=== PATIENT | male | born 1950 | race Caucasian/White ===

== ENCOUNTER 2017-07-05 15:27 | Outpatient (CLI) | payer MEDICARE, BC ==
[2017-07-05 16:53] LABS: #Eosinphils 0.3 thou/uL (0.0-0.7); #Lymphocytes 1.9 thou/uL (1.20-3.40); #Monocytes 0.8 thou/uL (0.11-0.59); #Neutrophils 4.7 thou/uL (1.40-6.50); %Basophils 0.3 % (0.0-1.0); %Eosinophils 4.4 % (0.0-10.0); %Lymphocytes 24.8 % (21.0-51.0); %Monocytes 9.7 % (0.0-10.0); %Neutrophils 60.8 % (42.0-75.0); Hemoglobin 13.3 g/dL (14.0-18.0); Mean Corpuscular Hemoglobin 31.9 pg (27.0-31.0); Mean Corpuscular Volume 91.1 fl (80.0-94.0); Mean Platelet Volume 5.5 fL (7.4-10.4); Platelet Count 182 thou/uL (130-400); RBC Distribution Width 13.8 % (11.5-14.5); Red Blood Cell (RBC) Count 4.18 mill/uL (4.70-6.10); White Blood Cell (WBC) Count 7.8 thou/uL (4.8-10.8)
[2017-07-05 17:19] LABS: Anion Gap 14 mmol/L (10-20); BUN (Urea Nitrogen) 11 mg/dL (8.4-25.7); Calc. Creatinine Clearance 0 mL/min (70-130); Calcium 9.5 mg/dL (7.8-10.44); Carbon Dioxide 24 mmol/L (23-31); Chloride 99 mmol/L (98-107); Estimated GFR-MDRD Greater than 90; Glucose 86 mg/dL (80-115); Potassium 4.4 mmol/L (3.5-5.1); Sodium 133 mmol/L (136-145)
--- NOTE | 2017-07-06 16:15 | EKG ---
Test Reason : Blood Pressure : / mmHG Vent. Rate : 068 BPM Atrial Rate : 068 BPM P-R Int : 150 ms QRS Dur : 096 ms QT Int : 398 ms P-R-T Axes : 014 028 036 degrees QTc Int : 423 ms Normal sinus rhythm Inferior infarct , age undetermined Cannot rule out Anterior infarct , age undetermined Abnormal ECG Confirmed by EDENILSON BILLS ([id number]) on 07/06/2017 4:15:11 PM Referred By: HYACINTH Confirmed By:EDENILSON BILLS
== END 2017-07-05 15:28 | disposition home or self-care (01) ==
LOC: LABBT 15:27
PROVIDERS: ATTEND Thoracic Surgery (Cardiothoracic Vascular Surgery)
DX: Z01.818 Encounter for other preprocedural examination (principal); R94.31 Abnormal electrocardiogram [ECG] [EKG]
CPT/HCPCS: 80048; 85025; 86850; 86900; 86901; 93005; 93010

== ENCOUNTER 2017-07-05 15:30 | Inpatient (IN) | payer MEDICARE, BC ==
--- NOTE | 2017-07-04 19:55 | HP ---
DATE OF ADMISSION: 07/06/2017 HISTORY OF PRESENT ILLNESS: This is a 67-year-old gentleman being electively admitted for an endovas cular aneurysm repair. The patient was diagnosed with an abdominal aortic aneurysm at 5.3 cm followi ng an episode of abdominal discomfort. He has a history of smoking and hypertension. CT angiogram w as done and discussion was held with the patient regarding endovascular aneurysm repair versus open r epair. Initial suggestion was for open repair due to a short neck. However, the patient, although i nitially in favor of open repair has changed his mind and wishes to undergo endovascular aneurysm rep air and we have discussed the possible downsides of this over time with possible need for further int ervention. He insists on minimally invasive repair at this time. PAST MEDICAL HISTORY: Includes hypertension, diverticulosis, gastroesophageal reflux disease, lower extremity disease and arthritis of the shoulders. Chronic pain syndrome followed by Dr. Armstrong and Dr. Cee. SOCIAL HISTORY: The patient does smoke on a daily basis and it has been strongly suggested that he s top smoking. He has taken Wellbutrin in the recent past and Chantix has also been prescribed for him . He drinks only socially. His occupation the patient retired from [employer] for many years. He is mar ried and spends most of his time in the house, although does work around the yard occasionally. MEDICATIONS: Include Maxzide one a day, amlodipine 2.5 a day, fentanyl 100 mcg patch every for 48 ho urs once a month, levothyroxine 50 mcg daily as well as levothyroxine 200 mcg daily, zonisamide 50 mg b.i.d., bupropion 150 mg b.i.d., and aspirin 81 a day. ALLERGIES: None known. PHYSICAL EXAMINATION: VITAL SIGNS: Height 5' 10", weight 220, blood pressure 160/80, heart rate 75. NECK: Supple. No carotid bruits, no cervical adenopathy. CARDIAC: Regular rate and rhythm. No murmurs. LUNGS: Clear to auscultation. ABDOMEN: Obese with a low transverse abdominal incision. EXTREMITIES: He has brown pigmentation in both ankles with palpable femoral and posterior tibial pul ses. NEUROLOGIC: Grossly intact. ASSESSMENT: Abdominal aortic aneurysm. The patient wishes repair and plan on endovascular aneurysm repair. Informed consent has been obtained.
[2017-07-06] MEDS ORDERED: CEFAZOLIN/Water 2 GM/20 ML SYRINGE ONE (06:48)
[2017-07-06] MEDS ORDERED: Heparin 10,000 UNITS/1 ML VIAL ONE (06:55)
[2017-07-06] MEDS ORDERED: Protamine Sulfate 50 MG/5 ML VIAL ONE (06:55)
[2017-07-06] MEDS ORDERED: Fentanyl 100 MCG/2 ML VIAL ONE (07:20)
[2017-07-06] MEDS ORDERED: Midazolam HCl 2 mg/2 ml Vial ONE (07:20)
[2017-07-06] MEDS ORDERED: Fentanyl 100 MCG/2 ML VIAL SLOW IVP PRN (09:47)
[2017-07-06] MEDS ORDERED: Ondansetron HCl/PF 4 MG/2 ML Vial IVP PRN (09:47)
[2017-07-06] MEDS ORDERED: Acetaminophen 325 MG TAB PO PRN (09:47)
[2017-07-06] MEDS ORDERED: HYDROcodone/Acetaminophen 5/325 mg Tablet PO PRN (09:47)
[2017-07-06] MEDS ORDERED: Promethazine HCl 25 MG/ML VIAL IM PRN (09:47)
[2017-07-06] MEDS ORDERED: Phenylephrine 10 MG/NS 250 ML 250 ML IVPB PRN (09:47)
[2017-07-06] MEDS ORDERED: fentaNYL 100 mcg/hour Patch TD SCH (09:47)
[2017-07-06] MEDS ORDERED: hydrALAZINE 20 MG/ML VIAL SLOW IVP PRN (09:47)
[2017-07-06] MEDS: Sodium Chloride 0.9% 1,000 ML IV SCH ×2 (10:00→22:02)
[2017-07-06] MEDS: Fentanyl 100 MCG/2 ML VIAL SLOW IVP PRN ×2 (10:23→16:55)
--- NOTE | 2017-07-06 10:51 | OP ---
DATE OF PROCEDURE: 07/06/2017 PREOPERATIVE DIAGNOSIS: Abdominal aortic aneurysm. PROCEDURE: Endovascular aneurysm repair with a 2 piece main body Medtronic Endurant II system, left 28 x 13 x 166 and right 16 x 16 x 156. SURGEON: Dr. Harsh Culver FINANCIAL REPORTING ACCOUNTANT: Dr. Adam Soto ESTIMATED BLOOD LOSS: 100. FLUOROSCOPY: 14 minutes 53 seconds. CONTRAST: 70 mL. PROCEDURE IN DETAIL: After prepping and draping, ultrasound guided puncture of both common femoral a rteries was performed and a Perclose device x2 were deployed on each side. 14-Colombian sheaths were pl aced following which the pigtail was advanced over the wire on the left. A 12-Colombian sheath was plac ed on the right. Contrast angiography performed. The main body was then deployed up the left side a nd deployed just below the left renal orifice. Following this, the gate was cannulated on the right and the right limb deployed. Following this, balloons were used to inflate the grafts in limbs. Con trast angiography at the conclusion demonstrated very late type 2 endoleak, but otherwise showed good position with the right limb at the hypogastric takeoff and the left limb above the hypogastric abou t a 1.5 cm. There was good coverage in both iliacs. Stent was deployed just below the left renal or ifice. Following this, Perclose devices were deployed on the right with good hemostasis and on the l eft an additional Perclose device was placed and then with good hemostasis. Heparin, which had been given was partially reversed with protamine.
[2017-07-06 11:03] VITALS: BMI 31.6
[2017-07-06] MEDS: Amlodipine 5 MG TAB PO SCH (11:44)
[2017-07-06 11:45] VITALS: BP 161/65
[2017-07-06] MEDS ORDERED: Succinylcholine Chloride 20 MG/ML 10 ml SYRINGE FS ONE (12:02)
[2017-07-06] MEDS ORDERED: Dexamethasone 20 MG/5 ML VIAL ONE (12:02)
[2017-07-06] MEDS ORDERED: Heparin 10,000 UNITS/ 10 ML VIAL ONE (12:02)
[2017-07-06] MEDS ORDERED: Esmolol 100 MG/10 ML VIAL ONE (12:02)
[2017-07-06] MEDS ORDERED: PROPOFOL 200 MG/20 ML VIAL ONE (12:02)
--- NOTE | 2017-07-06 13:07 | CON ---
DATE OF CONSULTATION: 07/06/2017 Mr. Clemens is a 67-year-old male who I know quite well. I have taken care of his with multiple complex medical problems for several years. Mr. Clemens was recently diagnosed with an abdominal aortic aneurysm. He had been having some sweating with some abdominal discomfort. He had an ultrasound that identified the problem. He has undergone an endovascular aneurysm repair. I have examined him in the Critical Care Unit after his surgery. PAST MEDICAL HISTORY: 1. Hypertension. 2. Diverticulosis. 3. Reflux disease. 4. History of arthritis. 5. History of chronic pain. SOCIAL HISTORY: He is a daily smoker. He drinks occasionally. He worked for [employer] for many years. FAMILY HISTORY: Negative for lung disease at an early age. REVIEW OF SYSTEMS: 10 point system review otherwise negative. His only complaint is his shoulder. He is actually tentatively on the schedule for a rotator cuff repair this week. MEDICATIONS: Prior to admission, he was on Maxzide fentanyl, Synthroid, zonisamide, Wellbutrin and aspirin. ALLERGIES: He has no reported drug allergies. PHYSICAL EXAMINATION: He has an arterial line in place. VITAL SIGNS: Blood pressure is 170s this morning. Heart rate is in the 80s, respiratory rate is 18. GENERAL: He is in no distress. HEENT: Pupils are equal. Sclerae is anicteric. NECK: Supple. LUNGS: Clear. HEART: Regular rhythm, no S3. ABDOMEN: Soft and nontender. EXTREMITIES: With asymmetry. His feet are warm. NEUROLOGIC: Nonfocal. There is no lab. IMPRESSION: 1. Status post endovascular aneurysm repair. 2. Rotator cuff tear tentatively on the schedule for surgical repair of this. 3. Hypertension, not entirely controlled yet. I have added Norvasc this morning. We will start him on a Cardene drip until the Norvasc kicks in. This is a 70 minute consult, greater than 50% of the time was spent coordinating care. HECTOR
[2017-07-06] MEDS: CEFAZOLIN/Water 2 GM/20 ML SYRINGE SLOW IVP SCH ×2 (14:22→22:03)
[2017-07-06] MEDS: HYDROcodone/Acetaminophen 5/325 mg Tablet PO PRN ×2 (17:57→23:27)
[2017-07-07] MEDS: Fentanyl 100 MCG/2 ML VIAL SLOW IVP PRN ×2 (00:15→05:54)
[2017-07-07] MEDS: CEFAZOLIN/Water 2 GM/20 ML SYRINGE SLOW IVP SCH (05:55)
[2017-07-07] MEDS ORDERED: Levothyroxine Sodium 100 MCG TAB PO SCH (06:00)
[2017-07-07] MEDS: Sodium Chloride 0.9% 1,000 ML IV SCH ×2 (06:11→06:46)
[2017-07-07 06:26] LABS: #Lymphocytes 1.3 thou/uL (1.20-3.40); #Monocytes 0.8 thou/uL (0.11-0.59); #Neutrophils 11.4 thou/uL (1.40-6.50); %Basophils 0.1 % (0.0-1.0); %Eosinophils 0.1 % (0.0-10.0); %Lymphocytes 9.5 % (21.0-51.0); %Monocytes 5.6 % (0.0-10.0); %Neutrophils 84.7 % (42.0-75.0); Hemoglobin 11.5 g/dL (14.0-18.0); Mean Corpuscular HGB CONC 34.5 g/dL (32.0-36.0); Mean Corpuscular Hemoglobin 31.2 pg (27.0-31.0); Mean Corpuscular Volume 90.6 fl (80.0-94.0); Mean Platelet Volume 5.7 fL (7.4-10.4); Platelet Count 177 thou/uL (130-400); Red Blood Cell (RBC) Count 3.68 mill/uL (4.70-6.10); White Blood Cell (WBC) Count 13.4 thou/uL (4.8-10.8)
[2017-07-07] MEDS ORDERED: Fentanyl 100 MCG/2 ML VIAL ONE (06:28)
[2017-07-07] MEDS ORDERED: Midazolam HCl 2 mg/2 ml Vial ONE (06:28)
[2017-07-07] MEDS ORDERED: Lidocaine 2% Jelly 5 ML TUBE ONE (06:29)
[2017-07-07] MEDS ORDERED: Phenylephrine HCL 10 MG/ML VIAL ONE (06:30)
[2017-07-07 06:52] LABS: Anion Gap 11 mmol/L (10-20); BUN (Urea Nitrogen) 9 mg/dL (8.4-25.7); Calc. Creatinine Clearance 145 mL/min (70-130); Calcium 9.4 mg/dL (7.8-10.44); Carbon Dioxide 22 mmol/L (23-31); Chloride 106 mmol/L (98-107); Estimated GFR-MDRD Greater than 90; Glucose 124 mg/dL (80-115); Potassium 4.1 mmol/L (3.5-5.1); Sodium 135 mmol/L (136-145)
[2017-07-07] MEDS: Amlodipine 5 MG TAB PO SCH (07:44)
[2017-07-07 08:47] VITALS: TEMP 98.3
[2017-07-07] MEDS ORDERED: Triamterene/Hydrochlorothiazide 37.5 mg/25 mg Tablet PO SCH (09:00)
[2017-07-07] MEDS ORDERED: Amlodipine 10 MG TAB PO SCH (09:00)
--- NOTE | 2017-07-07 09:05 | PRG ---
DATE OF SERVICE: 07/07/2017 Mr. Clemens is still on Cardene drip. Blood pressure is in the 140s. He is in no distress. PHYSICAL EXAMINATION: LUNGS: His lungs are clear. HEART: Regular rhythm. ABDOMEN: Abdomen is soft. EXTREMITIES: Extremities without clubbing, cyanosis, or edema. His feet are warm. LABORATORY: White count 13.4, hemoglobin 11.5, platelets 177. Sodium 135, potassium 4.1, chloride 106, bicarb 22, BUN 9, creatinine 0.7. IMPRESSION: Hypertension. Increased his Cardene dose, restarted his Dyazide. Hopefully, can wean o ff Cardene today and go home later today. He appears to be clinically stable.
--- NOTE | 2017-07-07 11:49 | DIS ---
This is a gentleman who underwent endovascular aneurysm repair on the morning of admission. His post operative course was uneventful with good urine output and normal renal function the day following mcelroy rgery. He had good diuresis with IV fluids through the night. He had been planned to have shoulder surgery on the day following his endovascular aneurysm repair; however, the orthopedic surgeon after consideration of the situation recommended that he come back for the surgery rather than have it done this admission. The patient will be discharged home on his admitting medications and no prescriptio ns have been written.
== END 2017-07-07 09:52 | disposition home or self-care (01) | DRG 269 ==
LOC: SURG A 07-06 05:41 → CCU 07-06 09:39
PROVIDERS: ADMIT Thoracic Surgery (Cardiothoracic Vascular Surgery); ATTEND Thoracic Surgery (Cardiothoracic Vascular Surgery)
PROC: 04V03DZ Restriction of Abdominal Aorta with Intraluminal Device, Percutaneous Approach (ICD-10-PCS; principal; 2017-07-06)
DX: I71.4 Abdominal aortic aneurysm, without rupture (principal); F17.210 Nicotine dependence, cigarettes, uncomplicated; G89.4 Chronic pain syndrome; I10 Essential (primary) hypertension; K21.9 Gastro-esophageal reflux disease without esophagitis; M19.012 Primary osteoarthritis, left shoulder; M19.011 Primary osteoarthritis, right shoulder; M75.100 Unspecified rotator cuff tear or rupture of unspecified shoulder, not specified as traumatic
CPT/HCPCS: 36416; 76001; 80048; 85025; 86850; 86900; 86901; 93005; 93010; C1726; C1760; C1769; C1894; J0360; J1100; J1642; J1644; J2250; J2370; J2704; J2720; J3010; J7050

== ENCOUNTER 2017-07-14 14:16 | Outpatient (CLI) | payer MEDICARE, BC ==
[2017-07-14 15:35] LABS: #Eosinphils 0.3 thou/uL (0.0-0.7); #Lymphocytes 1.5 thou/uL (1.20-3.40); #Monocytes 0.8 thou/uL (0.11-0.59); #Neutrophils 4.3 thou/uL (1.40-6.50); %Basophils 0.6 % (0.0-1.0); %Eosinophils 4.7 % (0.0-10.0); %Lymphocytes 21.4 % (21.0-51.0); %Neutrophils 61.3 % (42.0-75.0); Mean Corpuscular HGB CONC 34.5 g/dL (32.0-36.0); Mean Corpuscular Hemoglobin 31.9 pg (27.0-31.0); Mean Corpuscular Volume 92.4 fl (80.0-94.0); Mean Platelet Volume 6.1 fL (7.4-10.4); Platelet Count 193 thou/uL (130-400); RBC Distribution Width 14.1 % (11.5-14.5); Red Blood Cell (RBC) Count 3.77 mill/uL (4.70-6.10)
[2017-07-14 15:56] LABS: Anion Gap 12 mmol/L (10-20); BUN (Urea Nitrogen) 11 mg/dL (8.4-25.7); Calc. Creatinine Clearance 0 mL/min (70-130); Calcium 9.4 mg/dL (7.8-10.44); Carbon Dioxide 26 mmol/L (23-31); Chloride 99 mmol/L (98-107); Estimated GFR-MDRD Greater than 90; Glucose 95 mg/dL (80-115); Potassium 3.6 mmol/L (3.5-5.1); Sodium 133 mmol/L (136-145)
== END 2017-07-14 14:17 | disposition home or self-care (01) ==
LOC: LABBT 14:16
PROVIDERS: ATTEND Orthopaedic Surgery
DX: Z01.818 Encounter for other preprocedural examination (principal); M75.101 Unspecified rotator cuff tear or rupture of right shoulder, not specified as traumatic; M75.21 Bicipital tendinitis, right shoulder
CPT/HCPCS: 80048; 85025

== ENCOUNTER 2017-07-15 07:37 | Day surgery (SDC) | payer MEDICARE, BC ==
[2017-07-14 14:55] VITALS: BMI 32.3
[2017-07-15] MEDS ORDERED: CEFAZOLIN/Water 2 GM/20 ML SYRINGE ONE (09:14)
[2017-07-15] MEDS ORDERED: Midazolam HCl 2 mg/2 ml Vial ONE (09:46)
[2017-07-15] MEDS ORDERED: Fentanyl 100 MCG/2 ML VIAL ONE ×3 (09:46→13:22)
[2017-07-15] MEDS ORDERED: Promethazine HCl 25 MG/ML VIAL IM PRN (10:15)
[2017-07-15] MEDS ORDERED: HYDROcodone/Acetaminophen 10/325 mg Tablet PO PRN ×2 (10:15)
[2017-07-15] MEDS ORDERED: traMADol HCl 50 MG TAB PO PRN ×2 (10:15)
[2017-07-15] MEDS ORDERED: Zolpidem Tartrate 5 MG TAB PO PRN (10:15)
[2017-07-15] MEDS ORDERED: Ropivacaine 0.2% 550 ML 550 ML NERVE BLCK SCH (10:15)
[2017-07-15] MEDS ORDERED: Ondansetron HCl/PF 4 MG/2 ML Vial IVP PRN (10:15)
[2017-07-15] MEDS ORDERED: Fentanyl 100 MCG/2 ML VIAL IV SCH (10:30)
[2017-07-15] MEDS ORDERED: Lidocaine 2% Jelly 5 ML TUBE ONE (11:18)
--- NOTE | 2017-07-15 13:16 | OP ---
DATE OF PROCEDURE: 07/15/2017 PREOPERATIVE DIAGNOSES: Partial rotator cuff tear, biceps tendonitis, impingement syndrome, right halima burroughs. POSTOPERATIVE DIAGNOSES: Partial rotator cuff tear, biceps tendonitis, impingement syndrome, right gloria vaughan. SURGEON: Atif Boo M.D. VERTICAL MILL OPERATOR: Tino Mancuso PA-C. BLOOD LOSS: Minimal. SPECIMEN: None. DRAINS: None. COMPLICATIONS: None. TITLE OF PROCEDURE: Arthroscopic subacromial decompression, arthroscopic biceps tenodesis and debrid ement of rotator cuff tear and labrum. PROCEDURE IN DETAIL: The patient was placed in left lateral decubitus position. Right arm was place d in 15 pounds of traction, prepped and draped in the usual sterile fashion. Scope was placed in the glenohumeral joint. There was no significant arthritis. There was quite a bit of fraying and infla mmation of the biceps tendon. This was tagged and detached off the labrum. Labrum was torn. I debr ided the labrum with a shaver circumferentially. There did appear to be a partial thickness rotator cuff tear, but did not appear to be full-thickness from the joint surface. I placed the scope in mcelroy bacromial bursa, performed extensive debridement, removed the CA ligament, did an anterior and inferi or acromioplasty using arthroscopic acromionizer bur to remove bursal tissue over the biceps tendon. I delivered the biceps tendon laterally. I amputated about half an inch of the biceps tendon, place d about 25 mm of [place] suture in the tendon. It was measured and found to be a size 7. I drilled a size 7-hole in the proximal humerus, delivered the tendon to the hole and placed an Arthrex 7 mm Bio -Tenodesis screw. I tied sutures over the top of the tendon. The rotator cuff tear was probed from the bursal side. I could find no evidence of full-thickness rotator cuff tear from the bursal side. Therefore, no rotator cuff repair was performed. I felt that the debridement of the tear from the u ndersurface and acromioplasty should allow for healing of the tendon. There were no complications.
[2017-07-15] MEDS ORDERED: Meperidine HCl/PF 25 MG/ML VIAL ONE (13:20)
[2017-07-15] MEDS ORDERED: Ropivacaine 0.5% HCl/PF (150 MG/30 ML VIAL) ONE (19:27)
[2017-07-15] MEDS ORDERED: Ropivacaine 0.2% HCl/PF (40 MG/20 ML VIAL) ONE (19:27)
[2017-07-15] MEDS ORDERED: Dexamethasone 20 MG/5 ML VIAL ONE (19:38)
[2017-07-15] MEDS ORDERED: PROPOFOL 200 MG/20 ML VIAL ONE (19:38)
== END 2017-07-15 14:50 | disposition home or self-care (01) ==
LOC: SDC 07:37
PROVIDERS: ATTEND Orthopaedic Surgery
PROC: 0LQ14ZZ Repair Right Shoulder Tendon, Percutaneous Endoscopic Approach (ICD-10-PCS; principal; 2017-07-15)
PROC: 0RHJ44Z Insertion of Internal Fixation Device into Right Shoulder Joint, Percutaneous Endoscopic Approach (ICD-10-PCS; 2017-07-15)
PROC: 0LS14ZZ Reposition Right Shoulder Tendon, Percutaneous Endoscopic Approach (ICD-10-PCS; 2017-07-15)
PROC: 0RNJ4ZZ Release Right Shoulder Joint, Percutaneous Endoscopic Approach (ICD-10-PCS; 2017-07-15)
DX: M75.111 Incomplete rotator cuff tear or rupture of right shoulder, not specified as traumatic (principal); M75.21 Bicipital tendinitis, right shoulder; M75.41 Impingement syndrome of right shoulder; I10 Essential (primary) hypertension; K21.9 Gastro-esophageal reflux disease without esophagitis; G89.4 Chronic pain syndrome; F17.210 Nicotine dependence, cigarettes, uncomplicated; M19.012 Primary osteoarthritis, left shoulder; M19.011 Primary osteoarthritis, right shoulder; Z79.82 Long term (current) use of aspirin; Z79.891 Long term (current) use of opiate analgesic; Z79.899 Other long term (current) drug therapy
CPT/HCPCS: 29826; 29827; 29828; 96374 ×2; 97139; A4306; C1713; G8984; G8985; G8986; J1100; J2175; J2250; J2704; J2795; J3010

== ENCOUNTER 2017-09-20 12:33 | Outpatient (CLI) | payer MEDICARE, BC ==
[~2017-09-20 12:33] MED LIST: Iopamidol 370 76% 100 ML VIAL ONE
[2017-09-20 13:10] LABS: Estimated GFR-MDRD - POC Greater than 90
== END 2017-09-20 12:34 | disposition home or self-care (01) ==
LOC: BICCT 12:33
PROVIDERS: ATTEND Thoracic Surgery (Cardiothoracic Vascular Surgery)
DX: I71.4 Abdominal aortic aneurysm, without rupture (principal); Z95.828 Presence of other vascular implants and grafts
CPT/HCPCS: 74174; 82565

== ENCOUNTER 2018-03-27 08:23 | Day surgery (SDC) | payer MEDICARE, BC ==
[2018-03-24 16:06] VITALS: BMI 26.5
[2018-03-27 08:51] LABS: #Eosinphils 0.1 thou/uL (0.0-0.7); #Lymphocytes 1.1 thou/uL (1.20-3.40); #Monocytes 0.6 thou/uL (0.11-0.59); #Neutrophils 7.6 thou/uL (1.40-6.50); %Basophils 0.2 % (0.0-1.0); %Eosinophils 1.1 % (0.0-10.0); %Lymphocytes 11.9 % (21.0-51.0); %Monocytes 6.5 % (0.0-10.0); %Neutrophils 80.4 % (42.0-75.0); Hemoglobin 11.7 g/dL (14.0-18.0); Mean Corpuscular Hemoglobin 26.2 pg (27.0-31.0); Mean Corpuscular Volume 84.5 fL (78.0-98.0); Mean Platelet Volume 6.5 fL (7.4-10.4); Platelet Count 292 thou/uL (130-400); RBC Distribution Width 14.3 % (11.5-14.5); Red Blood Cell (RBC) Count 4.47 mill/uL (4.70-6.10); White Blood Cell (WBC) Count 9.5 thou/uL (4.8-10.8)
[2018-03-27 09:13] LABS: INR-International Normal Ratio 1.1; Prothrombin Time 14.3 SEC (12.0-14.7)
[2018-03-27 09:14] LABS: PTT 41.4 SEC (22.9-36.1)
[2018-03-27 09:19] VITALS: BP 124/76; TEMP 97.5
--- NOTE | 2018-03-27 13:28 | CT ---
CT GUIDED LIVER MASS BIOSPY: CONSCIOUS SEDATION: 1 mg Versed IV. 50 mcg Fentanyl, IV. At least 35 minutes were spent with the patient for conscious sedation. HISTORY: New liver masses. FINDINGS: After explaining the procedure and answering all questions, limited CT imaging of the abdomen was per formed. Heterogeneous mass in the anterior segment right liver lobe was visualized. Sterile techniq ue, buffered local anesthesia, CT guidance, conscious sedation, and a right lateral approach were use d to carefully advance a 17-gauge trocar needle into the heterogeneous low-density liver mass. Posit ion was confirmed with CT. A total of three 18-gauge core biopsy specimens were obtained and eventua lly submitted to pathology for evaluation. The needle was removed. Postprocedure imaging shows no e vidence of complication. The patient tolerated the procedure well and was returned to the [facility] in good condition for further monitoring. IMPRESSION: Technically successful CT-guided liver mass biopsy. Pathology is pending. POS: MARYJANE
--- NOTE | 2018-03-28 14:53 | CT ---
CT GUIDED LIVER MASS BIOSPY: CONSCIOUS SEDATION: 1 mg Versed IV. 50 mcg Fentanyl, IV. At least 35 minutes were spent with the patient for conscious sedation. HISTORY: New liver masses. FINDINGS: After explaining the procedure and answering all questions, limited CT imaging of the abdomen was per formed. Heterogeneous mass in the anterior segment right liver lobe was visualized. Sterile techniq ue, buffered local anesthesia, CT guidance, conscious sedation, and a right lateral approach were use d to carefully advance a 17-gauge trocar needle into the heterogeneous low-density liver mass. Posit ion was confirmed with CT. A total of three 18-gauge core biopsy specimens were obtained and eventua lly submitted to pathology for evaluation. The needle was removed. Postprocedure imaging shows no e vidence of complication. The patient tolerated the procedure well and was returned to the [facility] in good condition for further monitoring. IMPRESSION: Technically successful CT-guided liver mass biopsy. Pathology is pending.
== END 2018-03-27 12:10 | disposition home or self-care (01) ==
LOC: CT 08:23
PROVIDERS: ATTEND Internal Medicine Gastroenterology
PROC: 0FB13ZX Excision of Right Lobe Liver, Percutaneous Approach, Diagnostic (ICD-10-PCS; principal; 2018-03-27)
DX: C22.9 Malignant neoplasm of liver, not specified as primary or secondary (principal); D50.9 Iron deficiency anemia, unspecified; K21.9 Gastro-esophageal reflux disease without esophagitis; Z86.010 Personal history of colon polyps; Z87.891 Personal history of nicotine dependence; Z80.0 Family history of malignant neoplasm of digestive organs; Z79.82 Long term (current) use of aspirin; Z79.899 Other long term (current) drug therapy; Z91.040 Latex allergy status; Z91.048 Other nonmedicinal substance allergy status
CPT/HCPCS: 36415; 47000; 77012; 85025; 85610; 85730; 88307; 88313; 88341; 88342; 88360

== ENCOUNTER 2018-03-31 09:50 | Outpatient (CLI) | payer MEDICARE, BC ==
[2018-03-31] MEDS ORDERED: Iopamidol 370 76% 100 ML VIAL ONE (10:06)
[2018-03-31 10:41] LABS: Estimated GFR-MDRD - POC Greater than 90
--- NOTE | 2018-03-31 12:46 | CT ---
CT CHEST WITH IV CONTRAST: HISTORY: Lung cancer with hepatic metastases. Initial staging. COMPARISON: CT abdomen from 03/16/2018. FINDINGS: A large, very heterogeneous, partially necrotic mass, centered at the right lateral chest wall, at th e level of the 2nd and 3rd ribs, destroys the involved ribs. It is 9.8 cm in length x 9.1 cm in dept h x 7.9 cm in width. There is a small amount of adjacent atelectasis. Centered within the periphery of the superior segment, left lower lobe, is an irregular-shaped soft t issue density mass, measuring up to 3.4 cm in length x 3.7 cm in width x 2.5 cm in depth. It approac hes the posterior pleura. Old healing left 8th rib fracture. Enlarged lymph nodes within the mediastinum include a right upper paratracheal 3.1 cm lymph node, rig ht mediastinal lymph nodes measuring up to 2.9 cm, and a subcarinal lymph node measuring up to 2.7 cm . Prominent emphysematous changes are apparent throughout the lungs. Prominent calcification in the ar terial structures. Liver metastases are partially visualized, correlating with those on recent CT ab domen. IMPRESSION: 1. Right upper lobe and left lower lobe lung masses, as detailed above. The right upper lobe mass i nvades the right upper lateral chest wall. 2. Mediastinal adenopathy. 3. Redemonstration of hepatic metastases. 4. Atherosclerosis. POS: MARYJANE
== END 2018-03-31 09:51 | disposition home or self-care (01) ==
LOC: CT 09:50
PROVIDERS: ATTEND Internal Medicine Hematology & Oncology
DX: C78.7 Secondary malignant neoplasm of liver and intrahepatic bile duct (principal); C34.90 Malignant neoplasm of unspecified part of unspecified bronchus or lung; J98.4 Other disorders of lung; I70.0 Atherosclerosis of aorta; R59.0 Localized enlarged lymph nodes
CPT/HCPCS: 71260; 82565

== ENCOUNTER 2018-04-05 16:01 | Outpatient (CLI) | payer MEDICARE, BC ==
[2018-04-05 17:23] LABS: #Eosinphils 0.1 thou/uL (0.0-0.7); #Lymphocytes 1.5 thou/uL (1.20-3.40); #Neutrophils 10.8 thou/uL (1.40-6.50); %Basophils 0.3 % (0.0-1.0); %Eosinophils 0.7 % (0.0-10.0); %Lymphocytes 11.1 % (21.0-51.0); %Monocytes 7.4 % (0.0-10.0); %Neutrophils 80.6 % (42.0-75.0); Hemoglobin 12.3 g/dL (14.0-18.0); Mean Corpuscular HGB CONC 31.3 g/dL (32.0-36.0); Mean Corpuscular Hemoglobin 26.9 pg (27.0-31.0); Platelet Count 286 thou/uL (130-400); RBC Distribution Width 15.2 % (11.5-14.5); Red Blood Cell (RBC) Count 4.56 mill/uL (4.70-6.10); White Blood Cell (WBC) Count 13.4 thou/uL (4.8-10.8)
[2018-04-05 17:44] LABS: ALT (SGPT) 9 U/L (8-55); AST (SGOT) 17 U/L (5-34); Albumin 3.8 g/dL (3.4-4.8); Alkaline Phosphatase 186 U/L (40-150); Anion Gap 15 mmol/L (10-20); BUN (Urea Nitrogen) 11 mg/dL (8.4-25.7); Bilirubin, Total 0.7 mg/dL (0.2-1.2); Calc. Creatinine Clearance 0 mL/min (70-130); Calcium 9.8 mg/dL (7.8-10.44); Carbon Dioxide 26 mmol/L (23-31); Chloride 94 mmol/L (98-107); Estimated GFR-MDRD Greater than 90; Globulin 4.1 g/dL (2.4-3.5); Glucose 101 mg/dL (80-115); Potassium 4.1 mmol/L (3.5-5.1); Protein, Total 7.9 g/dL (5.8-8.1); Sodium 131 mmol/L (136-145)
== END 2018-04-05 16:02 | disposition home or self-care (01) ==
LOC: LABBT 16:01
PROVIDERS: ATTEND Surgery
DX: Z01.818 Encounter for other preprocedural examination (principal); C34.90 Malignant neoplasm of unspecified part of unspecified bronchus or lung
CPT/HCPCS: 80053; 85025; 93005; 93010

== ENCOUNTER 2018-04-10 08:53 | Day surgery (SDC) | payer MEDICARE, BC ==
[2018-04-05 16:13] VITALS: BMI 25.1
[2018-04-10] MEDS ORDERED: Fentanyl 100 MCG/2 ML VIAL ONE ×2 (09:46→10:55)
[2018-04-10] MEDS ORDERED: CEFAZOLIN 2 GM/50 ML BAG ONE (10:11)
[2018-04-10] MEDS ORDERED: Bupivacaine HCl 0.25%/Epi 0.0005/PF 10 ML VIAL FS ONE (10:44)
[2018-04-10] MEDS ORDERED: Lidocaine 2% PF 5 ML VIAL ONE (10:44)
[2018-04-10] MEDS ORDERED: PROPOFOL 20 ML ONE (10:55)
[2018-04-10] MEDS ORDERED: Midazolam HCl 2 mg/2 ml Vial ONE (10:55)
[2018-04-10] MEDS ORDERED: Morphine 4 MG/ML VIAL ONE (12:11)
--- NOTE | 2018-04-10 12:13 | OP ---
DATE OF PROCEDURE: 04/10/2018 PREOPERATIVE DIAGNOSIS: Metastatic carcinoma. PROCEDURE PERFORMED: MediPort placement. INDICATIONS: A 67-year-old male with metastatic lung cancer, needs access for chemotherapy. FINDINGS: Left subclavian placement. DESCRIPTION OF PROCEDURE: After informed consent was obtained, the patient was taken to the operating room and given general mask anesthesia, placed in supine position. His chest and neck were prepped and draped in usual fashion. Local anesthesia infiltrated subcutaneously and deep, and introducer needle was inserted in left subclavian with good backflow of venous blood. The J-wire threaded easily. Fluoroscopy was used to show good placement of the wire in the superior vena cava. Skin and subcu anesthetized. A transverse chest wall incision was performed. Subcu divided sharply. A pocket was created utilizing electrocautery on the pectoralis fascia. The tunneling device used to connect the two incisions and the catheter brought through the tunnel. It was connected to the MediPort. The MediPort secured to the pectoralis fascia with interrupted 2-0 Prolene suture. The system was flushed with heparinized saline. The peel-away introducer inserted over the wire. The wire was removed. The catheter inserted through the peel-away introducer and the peel-away introducer removed. Another fluoroscopy was used to show good placement of the tip in the superior vena cava and smooth curves without kinking. The subcu was reapproximated with interrupted 3-0 Vicryl. The MediPort access had good backflow of venous blood, flushed with heparinized saline. The skin closed with a running subcuticular 4-0 Rapide. Dermabond applied. The patient tolerated the procedure well, transferred to Recovery in good condition. Sponge and needle count verified correct x2. Job ID: [id number]
[2018-04-10] MEDS ORDERED: Ondansetron PF 4 MG/2 ML Vial ONE (13:28)
[2018-04-10] MEDS ORDERED: Ketorolac Tromethamine 30 MG/ML VIAL ONE (13:28)
--- NOTE | 2018-04-10 14:47 | RAD ---
CHEST 1 VIEW: INDICATION: MediPort placement. COMPARISON: CT of the chest dated 03/31/2018. FINDINGS: There is a left subclavian chest wall MediPort in place. The tip of the catheter is seen within the region of the SVC. Large infiltrating right upper chest wall lung mass is stable. Chronic lung faria ge is similar. No pneumothorax is evident. IMPRESSION: 1. Interval MediPort placement without evidence of pneumothorax. 2. Right upper lobe and right upper chest wall mass. POS: [facility]
== END 2018-04-10 12:40 | disposition home or self-care (01) ==
LOC: SDC 08:53
PROVIDERS: ATTEND Surgery
PROC: 0JH63WZ Insertion of Totally Implantable Vascular Access Device into Chest Subcutaneous Tissue and Fascia, Percutaneous Approach (ICD-10-PCS; principal; 2018-04-10)
DX: C34.90 Malignant neoplasm of unspecified part of unspecified bronchus or lung (principal); C78.7 Secondary malignant neoplasm of liver and intrahepatic bile duct; K21.9 Gastro-esophageal reflux disease without esophagitis; E07.9 Disorder of thyroid, unspecified; Z87.891 Personal history of nicotine dependence; Z79.82 Long term (current) use of aspirin; Z79.899 Other long term (current) drug therapy; Z98.1 Arthrodesis status
CPT/HCPCS: 36561; 71045; C1788; J1642; J1885; J2001; J2250; J2270; J2405; J2704; J3010

== ENCOUNTER 2018-04-27 15:54 | Inpatient (IN) | payer MEDICARE, BC ==
[2018-04-27 16:28] VITALS: BMI 25.0
[2018-04-27] MEDS ORDERED: Ondansetron PF 4 MG/2 ML Vial SLOW IVP PRN (16:46)
[2018-04-27] MEDS: Sodium Chloride 0.9% 1,000 ML IV SCH (17:10)
[2018-04-27] MEDS ORDERED: oxyCODONE/Acetaminophen 5 mg/325 mg Tablet PO PRN (18:22)
[2018-04-27] MEDS: oxyCODONE/Acetaminophen 5 mg/325 mg Tablet PO PRN (18:36)
[2018-04-27] MEDS ORDERED: Acetaminophen 325 MG TAB PO PRN (19:38)
[2018-04-27] MEDS ORDERED: Guaifenesin DM 100-10/5 ML UDCUP PO PRN (20:06)
[2018-04-27] MEDS ORDERED: Acetaminophen 650 MG Suppository PR PRN (20:06)
[2018-04-27] MEDS ORDERED: Senokot S 8.6-50 MG TAB PO PRN (20:06)
[2018-04-27] MEDS ORDERED: Ondansetron ODT 4 MG TAB PO PRN (20:06)
[2018-04-27] MEDS: Bupropion 150 MG XL TAB PO SCH (20:55)
[2018-04-27] MEDS: Cefepime 2 GM in Sodium Chloride 0.9% 100 ML IVPB SCH (21:18)
--- NOTE | 2018-04-28 02:57 | HP ---
PRIMARY CARE PHYSICIAN: Corey Nava MD. CHIEF COMPLAINT: Neutropenia and thrombocytopenia from chemotherapy. HISTORY OF PRESENT ILLNESS: This is a 67-year-old white male, who was diagnosed with metastatic lung cancer in the last 3 weeks, being seen at the [facility] and started on chemotherapy 1st round a little over week ago, then starting 1 week prior, about a week ago and then starting on about 5 days ago, he started feeling very fatigued, loss of appetite, not taking much in the way of food or fluids and feeling nauseated and generalized weakness. The patient presented to the Cancer Center today and looked very fatigued and rundown, and then we toshia his CBC, his white cell count was 1000, and his platelet count was 14,000. He also had a low sodium and was being admitted for fluids and platelet transfusion in the hospital. After patient started getting his platelet transfusion, he did spike a fever to 101. He denied having fevers previous to this, possibly related to the transfusion reaction, though he is at high risk for having an infection as well. PAST MEDICAL HISTORY: 1. Hypotension. 2. Gastroesophageal reflux disease. 3. Arthritis. 4. Diverticulosis. 5. Peripheral vascular disease. 6. Aortic aneurysm status post repair. 7. Chronic pain syndrome. PAST SURGICAL HISTORY: 1. Appendectomy. 2. Aortic aneurysm repair. 3. Endovascular repair. 4. Right shoulder surgery. SOCIAL HISTORY: The patient used to be a heavy smoker, smoked a pack and a half a day for at least 30 years. He quit when he was diagnosed with cancer, only social alcohol use. No illicit drugs. He is and lives with his . FAMILY HISTORY: Lung cancer. ALLERGIES: NO KNOWN DRUG ALLERGIES. HE DOES HAVE AN ALLERGY TO ADHESIVE TAPE, THOUGH. CURRENT MEDICATIONS: 1. Prevacid 30 mg twice daily. 2. Bupropion 150 mg 2 times daily. 3. Levothyroxine 200 mcg daily. 4. Zonisamide 50 mg 2 times daily. 5. Aspirin 325 mg daily. 6. Triamterene/hydrochlorothiazide 37.5/25 mg daily. 7. Amlodipine 2.5 mg daily. 8. Atorvastatin 20 mg daily. 9. Percocet as needed for pain. REVIEW OF SYSTEMS: CONSTITUTIONAL: See HPI. EYES: No double vision or blurred vision. ENT: He had a little bit of stuffy nose and then had some bleeding from his nose on and off over the last couple of days. No significant epistaxis, though. No sore throat. CARDIOVASCULAR: No chest pain. No palpitations or racing heart. PULMONARY: No coughing, wheezing or shortness of breath. GASTROINTESTINAL: He had a little bit of loss of appetite and little bit of nausea. No vomiting. No constipation. He had some loose bowel movement twice today. GENITOURINARY: No dysuria or hematuria. MUSCULOSKELETAL: He has chronic muscle aches and joint pains, but nothing unusual. He does have some right shoulder and chest wall pain as well. This is chronic in nature. SKIN: The patient has bruising all over his right back and under his right arm. He states that this is chronic ever since his right shoulder surgery in the past. No changes to it recently. NEUROLOGIC: No numbness, tingling, or focal weakness, just generalized weakness. PHYSICAL EXAMINATION: VITAL SIGNS: Blood pressure 101/52, pulse 106, respirations 18, temperature 98.4 initially, then spiked to 101. GENERAL: This is a well-developed, well-nourished white male, who appears very fatigued, but otherwise in no acute distress. HEENT: Pupils equal, round, and reactive to light. Nares with some dried blood. Oropharynx clear without lesions, erythema, or exudate. NECK: Supple. No lymphadenopathy. No thyroid nodules or enlargement. No JVD. HEART: Regular rate and rhythm. No murmurs, rubs, or gallops. LUNGS: Clear to auscultation bilaterally. No wheezes, crackles, or rhonchi. ABDOMEN: Soft, nontender to palpation. Normoactive bowel sounds. No hepatosplenomegaly or other masses. EXTREMITIES: He has some 1+ edema to bilateral lower extremities. No cyanosis or clubbing. SKIN: The patient has diffuse bruising underneath his right armpit and on his right back. He states this is chronic. No other rashes noted. NEUROLOGIC: He has had intact strength and sensation in all extremities. No facial droop. PSYCHIATRIC: Alert, oriented x3. Normal mood and affect. LABORATORY DATA: Sodium of 123, potassium of 3.9, chloride 87, bicarb 22, creatinine was normal. Glucose normal. Total bilirubin is a little elevated at 1.5 and direct bilirubin is elevated at 0.8. AST and ALT are normal. Alkaline phosphatase elevated at 198 and lactate dehydrogenase was elevated at 283, normal albumin. CBC with a white blood cell count of 1000, 35% granulocytes, 55% lymphocytes, hemoglobin 9.6, hematocrit 30.8, MCV of 80, platelet count of 14,000. ASSESSMENT: 1. Neutropenia now with fever, possibly reaction to his platelet transfusion. However, the patient is at high risk for infection. We will draw blood cultures, urine culture, and then cover with cefepime. We will continue to monitor closely in the hospital. 2. Thrombocytopenia, currently receiving transfusion. 3. Anemia. We will monitor, not in a severe level now, no active bleeding. 4. Metastatic lung cancer. We will have Oncology continue to follow the patient in the hospital. 5. Hypertension. We will hold patient's blood pressure medicines for now due to his borderline low blood pressure and tachycardia. We can resume them, if his blood pressure starts to come up. 6. Gastrointestinal prophylaxis. We will resume patient's proton pump inhibitor. 7. Sepsis. We will continue IV fluids and antibiotics. 8. Code status. I did discuss this with the patient. He is a DO NOT ATTEMPT RESUSCITATION should he be incapacitated. He states that his would be his medical decision maker, her name is Camrynjanae Clemens. Job ID: [id number]
[2018-04-28] MEDS: Sodium Chloride 0.9% 1,000 ML IV SCH ×3 (03:20→15:42)
[2018-04-28] MEDS: Levothyroxine Sodium 100 MCG TAB PO SCH (05:37)
[2018-04-28 06:18] LABS: Bilirubin Negative (Negative); Blood, Urine Negative (Negative); Clarity CLEAR (Clear); Glucose, Urine (Dipstick) Negative (Negative); Leukocyte Negative (Negative); Nitrite Negative (Negative); Protein, Urine (Dipstick) Trace mg/dL (Neg-Trace); Specific Gravity, Urine 1.024 (1.002-1.036)
[2018-04-28 06:25] LABS: Hemoglobin 8.1 g/dL (14.0-18.0); Mean Corpuscular HGB CONC 32.2 g/dL (32.0-36.0); Mean Corpuscular Hemoglobin 26.7 pg (27.0-31.0); Mean Corpuscular Volume 83.1 fL (78.0-98.0); Mean Platelet Volume 11.4 fL (7.4-10.4); Platelet Count 20 thou/uL (130-400); RBC Distribution Width 15.4 % (11.5-14.5); Red Blood Cell (RBC) Count 3.02 mill/uL (4.70-6.10)
[2018-04-28 06:26] LABS: ALT (SGPT) 7 U/L (8-55); AST (SGOT) 14 U/L (5-34); Albumin 3.1 g/dL (3.4-4.8); Alkaline Phosphatase 162 U/L (40-150); Anion Gap 16 mmol/L (10-20); BUN (Urea Nitrogen) 12 mg/dL (8.4-25.7); Bilirubin, Total 1.1 mg/dL (0.2-1.2); Calc. Creatinine Clearance 107 mL/min (70-130); Calcium 8.7 mg/dL (7.8-10.44); Carbon Dioxide 22 mmol/L (23-31); Chloride 90 mmol/L (98-107); Estimated GFR-MDRD Greater than 90; Globulin 3.3 g/dL (2.4-3.5); Glucose 86 mg/dL (80-115); Potassium 3.6 mmol/L (3.5-5.1); Protein, Total 6.4 g/dL (5.8-8.1); Sodium 124 mmol/L (136-145)
[2018-04-28 06:53] LABS: #Lymphocytes 0.4 thou/uL (1.20-3.40); #Monocytes 0.1 thou/uL (0.11-0.59); #Neutrophils 0.5 thou/uL (1.40-6.50); %Eosinophils 1.9 % (0.0-10.0); %Lymphocytes 36.4 % (21.0-51.0); %Monocytes 13.8 % (0.0-10.0); Anisocytosis SLIGHT = 6-15 cells (100X) (0-5/hpf); MDiff Complete? YES; Platelet Morphology Comment Appears Decreased
[2018-04-28] MEDS ORDERED: Artificial Tears 18 DROP/0.9 ML EA EYE PRN (08:29)
[2018-04-28] MEDS ORDERED: Zolpidem Tartrate 5 MG TAB PO PRN (08:29)
[2018-04-28] MEDS ORDERED: Eucerin (Mineral Oil/Petrolatum,White) 30 gm Jar TOP PRN (08:29)
[2018-04-28] MEDS ORDERED: Sodium Chloride 0.65% Nasal 44 ML BOT EA NARE PRN (08:29)
[2018-04-28] MEDS ORDERED: Loratadine 10 MG TAB PO PRN (08:29)
[2018-04-28] MEDS ORDERED: Cepastat Lozenges 1 LOZ PO PRN (08:29)
[2018-04-28] MEDS ORDERED: hydrALAZINE 20 MG/ML VIAL SLOW IVP PRN (08:29)
[2018-04-28] MEDS ORDERED: Diabetic Tussin 200 MG/10 ML UDCUP PO PRN (08:29)
[2018-04-28] MEDS: oxyCODONE/Acetaminophen 5 mg/325 mg Tablet PO PRN ×3 (09:21→19:36)
[2018-04-28] MEDS: Cefepime 2 GM in Sodium Chloride 0.9% 100 ML IVPB SCH ×2 (09:22→21:23)
[2018-04-28] MEDS: Atorvastatin Calcium 20 MG TAB PO SCH (09:22)
[2018-04-28] MEDS: Bupropion 150 MG XL TAB PO SCH ×2 (09:22→19:35)
--- NOTE | 2018-04-28 12:07 | PDOC.PN ---
- Subjective Encounter Start Date: 04/28/18 Encounter Start Time: 07:00 -: old records requested/rev pt was given platelet last night, he had fever last night, overall he feels fine this morning, but feels weak, his DNR confirmed with him - Objective Resuscitation Status - Order Detail: 04/27/18 19:41 Resuscitation Status Routine Resuscitation Status: DNAR: NO Resuscitation Discussed with: Patient MAR Reviewed: Yes Vital Signs & Weight: Vital Signs (12 hours) Temp Pulse Resp BP Pulse Ox 04/28/18 09:00 98.0 F 92 20 103/58 L 95 04/28/18 08:00 95 04/28/18 05:45 98.2 F 99 20 105/56 L 93 L Weight Weight 174 lb 11.2 oz I&O: 04/27/18 04/28/18 04/29/18 06:59 06:59 06:59 Intake Total 500 Balance 500 Result Diagrams: 04/28/18 05:40 04/28/18 05:40 Phys Exam - Physical Examination Constitutional: NAD HEENT: PERRLA, moist MMs, sclera anicteric Neck: no JVD, supple Respiratory: no wheezing, no rales, no rhonchi mediport in place, air entry reduced on right side Cardiovascular: RRR, no significant murmur, no rub Gastrointestinal: soft, non-tender, no distention, positive bowel sounds Musculoskeletal: no edema, pulses present Neurological: non-focal, normal sensation, moves all 4 limbs Lymphatic: no nodes Psychiatric: normal affect, A&O x 3 Skin: no rash, normal turgor Dx/Plan (1) Hyponatremia Code(s): E87.1 - HYPO-OSMOLALITY AND HYPONATREMIA Status: Acute (2) Neutropenic fever Code(s): D70.9 - NEUTROPENIA, UNSPECIFIED; R50.81 - FEVER PRESENTING WITH CONDITIONS CLASSIFIED ELSEWHERE Status: Acute (3) Pancytopenia due to chemotherapy Code(s): D61.810 - ANTINEOPLASTIC CHEMOTHERAPY INDUCED PANCYTOPENIA Status: Acute (4) Thrombocytopenia Code(s): D69.6 - THROMBOCYTOPENIA, UNSPECIFIED Status: Acute (5) Anxiety and depression Code(s): F41.9 - ANXIETY DISORDER, UNSPECIFIED; F32.9 - MAJOR DEPRESSIVE DISORDER, SINGLE EPISODE, UNSPECIFIED Status: Chronic (6) Dyslipidemia Code(s): E78.5 - HYPERLIPIDEMIA, UNSPECIFIED Status: Chronic (7) GERD (gastroesophageal reflux disease) Code(s): K21.9 - GASTRO-ESOPHAGEAL REFLUX DISEASE WITHOUT ESOPHAGITIS Status: Chronic (8) Hypertension Code(s): I10 - ESSENTIAL (PRIMARY) HYPERTENSION Status: Chronic (9) Hypothyroidism Code(s): E03.9 - HYPOTHYROIDISM, UNSPECIFIED Status: Chronic (10) Metastatic primary lung cancer Code(s): C34.90 - MALIGNANT NEOPLASM OF UNSP PART OF UNSP BRONCHUS OR LUNG Status: Chronic - Plan cont current plan of care, plan discussed w/ family, continue antibiotics * home medication reconciled * monitor labs * continue cefepime * continue IVF * hold BP meds for now * follow culture * medication reviewed as below * symptomatic treatment. Review of Systems - Review of Systems Constitutional: fever, weakness. negative: chills, sweats, malaise, other Respiratory: negative: Cough, Dry, Shortness of Breath, Hemoptysis, SOB with Excertion, Pleuritic Pain, Sputum, Wheezing Cardiovascular: negative: chest pain, palpitations, orthopnea, paroxysmal nocturnal dyspnea, edema, light headedness, other Gastrointestinal: negative: Nausea, Vomiting, Abdominal Pain, Diarrhea, Constipation, Melena, Hematochezia, Other Genitourinary: negative: Dysuria, Frequency, Incontinence, Hematuria, Retention , Other Musculoskeletal: negative: Neck Pain, Shoulder Pain, Arm Pain, Back Pain, Hand Pain, Leg Pain, Foot Pain, Other - Medications/Allergies Allergies/Adverse Reactions: Allergies Allergy/AdvReac Type Severity Reaction Status Date / Time adhesive tape Allergy Mild Verified 04/05/18 16:12 Medications: Current Medications Acetaminophen (Tylenol) 650 mg PO Q4H PRN PRN Reason: Fever/Mild Pain Last Admin: 04/27/18 20:53 Dose: 650 mg Acetaminophen (Tylenol) 650 mg [place] Q4H PRN PRN Reason: Headache/Fever/Mild Pain (1-3) Artificial Tears (Tears Naturale) 2 drop EA EYE PRN PRN PRN Reason: Dry Eyes Atorvastatin Calcium (Lipitor) 20 mg PO DAILY [facility] Last Admin: 04/28/18 09:22 Dose: 20 mg Bupropion HCl (Wellbutrin Xl) 150 mg PO BID [facility] Last Admin: 04/28/18 09:22 Dose: 150 mg Al Hydroxide/Mg Hydroxide 60 ml/ Lidocaine HCl 30 ml/Diphenhydramine HCl 75 mg 0 ml SSW PRN PRN PRN Reason: Mouth Irritation Guaifenesin (Robitussin Sf) 200 mg PO Q4H PRN PRN Reason: Cough Guaifenesin/Dextromethorphan (Robitussin Dm) 15 ml PO Q4H PRN PRN Reason: Cough Hydralazine HCl (Apresoline) 10 mg SLOW IVP Q4H PRN PRN Reason: SBP > 180 and HR < 70 Sodium Chloride (Normal Saline 0.9%) 1,000 mls @ 100 mls/hr IV .Q10H [facility] Last Admin: 04/28/18 05:37 Dose: 1,000 mls Cefepime HCl 2 gm/ Sodium (Chloride) 100 mls @ 200 mls/hr IVPB Q12HR [facility] Last Admin: 04/28/18 09:22 Dose: 100 mls Levothyroxine Sodium (Synthroid) 200 mcg PO 0600 [facility] Last Admin: 04/28/18 05:37 Dose: 200 mcg Loratadine (Claritin) 10 mg PO DAILYPRN PRN PRN Reason: Sinus Symptoms Mineral Oil/White Petrolatum (Eucerin Cream) 0 gm TOP BIDPRN PRN PRN Reason: Dry Skin Ondansetron HCl (Zofran) 8 mg SLOW IVP Q6H PRN PRN Reason: Nausea/Vomiting Ondansetron HCl (Zofran Odt) 4 mg PO Q6H PRN PRN Reason: Nausea/Vomiting Oxycodone/Acetaminophen (Percocet 5/325) 1 tab PO Q4H PRN PRN Reason: Mild-Moderate Pain (1-5) Oxycodone/Acetaminophen (Percocet 5/325) 2 tab PO Q4H PRN PRN Reason: Moderate to Severe Pain (6-10) Last Admin: 04/28/18 09:21 Dose: 2 tab Pantoprazole Sodium (Protonix) 40 mg PO BID [facility] Last Admin: 04/28/18 09:22 Dose: 40 mg Senna/Docusate Sodium (Senokot S) 2 tab PO BIDPRN PRN PRN Reason: Constipation Sodium Chloride ([place] Nasal [place] 0.65%) 0 ml EA NARE QIDPRN PRN PRN Reason: Nasal Congestion Throat Lozenges (Cepastat Lozenges) 1 nikkie PO Q2H PRN PRN Reason: Sore Throat Zolpidem Tartrate (Ambien) 5 mg PO HSPRN PRN PRN Reason: Insomnia Zonisamide (Zonisamide) 50 mg PO BIDPRN PRN PRN Reason: tingling sensation in legs
[2018-04-28] MEDS: Aluminum & Magnesium Hydroxide 60 ML, Lidocaine 2% Viscous Solution 30 ML, diphenhydrAM... SSW PRN (19:36)
[2018-04-29] MEDS: oxyCODONE/Acetaminophen 5 mg/325 mg Tablet PO PRN ×5 (00:06→20:47)
[2018-04-29] MEDS: Sodium Chloride 0.9% 1,000 ML IV SCH ×2 (02:20→17:08)
[2018-04-29 02:58] LABS: Hemoglobin 7.2 g/dL (14.0-18.0); Mean Corpuscular HGB CONC 32.3 g/dL (32.0-36.0); Mean Corpuscular Hemoglobin 26.9 pg (27.0-31.0); Mean Corpuscular Volume 83.2 fL (78.0-98.0); Mean Platelet Volume 12.8 fL (7.4-10.4); Platelet Count 13 thou/uL (130-400); RBC Distribution Width 15.1 % (11.5-14.5); Red Blood Cell (RBC) Count 2.66 mill/uL (4.70-6.10); White Blood Cell (WBC) Count 1.1 thou/uL (4.8-10.8)
[2018-04-29 03:02] LABS: Band 14 % (5-11); Lymphocytes 33 % (21-51); MDiff Complete? YES; Monocytes 10 % (0-10); Neutrophil 43 % (42-75)
[2018-04-29 03:08] LABS: ALT (SGPT) 8 U/L (8-55); AST (SGOT) 16 U/L (5-34); Albumin 2.7 g/dL (3.4-4.8); Alkaline Phosphatase 140 U/L (40-150); Anion Gap 11 mmol/L (10-20); BUN (Urea Nitrogen) 10 mg/dL (8.4-25.7); Bilirubin, Total 0.8 mg/dL (0.2-1.2); Calc. Creatinine Clearance 131 mL/min (70-130); Calcium 8.3 mg/dL (7.8-10.44); Carbon Dioxide 22 mmol/L (23-31); Chloride 95 mmol/L (98-107); Estimated GFR-MDRD Greater than 90; Globulin 3.1 g/dL (2.4-3.5); Glucose 92 mg/dL (80-115); Potassium 3.4 mmol/L (3.5-5.1); Protein, Total 5.8 g/dL (5.8-8.1); Sodium 125 mmol/L (136-145)
[2018-04-29] MEDS: Levothyroxine Sodium 100 MCG TAB PO SCH (05:00)
[2018-04-29] MEDS: Aluminum & Magnesium Hydroxide 60 ML, Lidocaine 2% Viscous Solution 30 ML, diphenhydrAM... SSW PRN (08:57)
[2018-04-29] MEDS: Bupropion 150 MG XL TAB PO SCH ×2 (08:58→20:48)
[2018-04-29] MEDS: Atorvastatin Calcium 20 MG TAB PO SCH (08:58)
[2018-04-29] MEDS: Cefepime 2 GM in Sodium Chloride 0.9% 100 ML IVPB SCH ×2 (08:58→17:07)
[2018-04-29] MEDS ORDERED: Acetaminophen 500 MG TAB PO SCH (12:00)
--- NOTE | 2018-04-29 13:04 | PDOC.PN ---
- Subjective Encounter Start Date: 04/29/18 Encounter Start Time: 07:00 Patient seen and examined. No new complaints. No overnight events - Objective Resuscitation Status - Order Detail: 04/27/18 19:41 Resuscitation Status Routine Resuscitation Status: DNAR: NO Resuscitation Discussed with: Patient MORRIS Reviewed: Yes Vital Signs & Weight: Vital Signs (12 hours) Temp Pulse Pulse Resp BP BP Pulse Ox 04/29/18 12:57 98.2 F 78 16 109/74 98 04/29/18 12:35 97.9 F 79 16 103/54 L 97 04/29/18 08:15 98.1 F 84 14 99/53 L 97 04/29/18 04:19 98.0 F 82 12 93/55 L 97 Weight Admit Weight 174 lb 11.2 oz Weight 174 lb 11.2 oz I&O: 04/28/18 04/29/18 04/30/18 06:59 06:59 06:59 Intake Total 500 1900 0 Balance 500 1900 0 Result Diagrams: 04/29/18 02:30 04/29/18 02:30 Phys Exam - Physical Examination Constitutional: NAD HEENT: PERRLA, moist MMs, sclera anicteric Neck: no JVD, supple Respiratory: no wheezing, no rales, no rhonchi Cardiovascular: RRR, no significant murmur, no rub Gastrointestinal: soft, non-tender, no distention, positive bowel sounds Musculoskeletal: pulses present, edema present Neurological: non-focal, normal sensation, moves all 4 limbs Lymphatic: no nodes Psychiatric: normal affect, A&O x 3 Skin: no rash, normal turgor Dx/Plan (1) Hyponatremia Code(s): E87.1 - HYPO-OSMOLALITY AND HYPONATREMIA Status: Acute (2) Neutropenic fever Code(s): D70.9 - NEUTROPENIA, UNSPECIFIED; R50.81 - FEVER PRESENTING WITH CONDITIONS CLASSIFIED ELSEWHERE Status: Acute (3) Pancytopenia due to chemotherapy Code(s): D61.810 - ANTINEOPLASTIC CHEMOTHERAPY INDUCED PANCYTOPENIA Status: Acute (4) Thrombocytopenia Code(s): D69.6 - THROMBOCYTOPENIA, UNSPECIFIED Status: Acute (5) Anxiety and depression Code(s): F41.9 - ANXIETY DISORDER, UNSPECIFIED; F32.9 - MAJOR DEPRESSIVE DISORDER, SINGLE EPISODE, UNSPECIFIED Status: Chronic (6) Dyslipidemia Code(s): E78.5 - HYPERLIPIDEMIA, UNSPECIFIED Status: Chronic (7) GERD (gastroesophageal reflux disease) Code(s): K21.9 - GASTRO-ESOPHAGEAL REFLUX DISEASE WITHOUT ESOPHAGITIS Status: Chronic (8) Hypertension Code(s): I10 - ESSENTIAL (PRIMARY) HYPERTENSION Status: Chronic (9) Hypothyroidism Code(s): E03.9 - HYPOTHYROIDISM, UNSPECIFIED Status: Chronic (10) Metastatic primary lung cancer Code(s): C34.90 - MALIGNANT NEOPLASM OF UNSP PART OF UNSP BRONCHUS OR LUNG Status: Chronic (11) Edema extremities Code(s): R60.0 - LOCALIZED EDEMA Status: Acute (12) Bacteremia due to Pseudomonas Code(s): R78.81 - BACTEREMIA Status: Acute - Plan cont current plan of care, continue antibiotics * Continue cefepime * DC IVF * will transfuse 1 unit PRBC and 1 unit platelet * medication reviewed as below * symptomatic treatment. * repeat labs tomorrow Review of Systems - Review of Systems Constitutional: negative: fever, chills, sweats, weakness, malaise, other Eyes: negative: Pain, Vision Change, Conjunctivae Inflammation, Eyelid Inflammation, Redness, Other ENT: negative: Ear Pain, Ear Discharge, Nose Pain, Nose Discharge, Nose Congestion, Mouth Pain, Mouth Swelling, Throat Pain, Throat Swelling, Other Respiratory: negative: Cough, Dry, Shortness of Breath, Hemoptysis, SOB with Excertion, Pleuritic Pain, Sputum, Wheezing Cardiovascular: edema. negative: chest pain, palpitations, orthopnea, paroxysmal nocturnal dyspnea, light headedness, other Gastrointestinal: negative: Nausea, Vomiting, Abdominal Pain, Diarrhea, Constipation, Melena, Hematochezia, Other Genitourinary: negative: Dysuria, Frequency, Incontinence, Hematuria, Retention , Other Musculoskeletal: negative: Neck Pain, Shoulder Pain, Arm Pain, Back Pain, Hand Pain, Leg Pain, Foot Pain, Other Skin: negative: Rash, Lesions, Gaurav, Bruising, Other - Medications/Allergies Allergies/Adverse Reactions: Allergies Allergy/AdvReac Type Severity Reaction Status Date / Time adhesive tape Allergy Mild Verified 04/05/18 16:12 Medications: Current Medications Acetaminophen (Tylenol) 650 mg PO Q4H PRN PRN Reason: Fever/Mild Pain Last Admin: 02/14/19 20:53 Dose: 650 mg Acetaminophen (Tylenol) 650 mg [place] Q4H PRN PRN Reason: Headache/Fever/Mild Pain (1-3) Acetaminophen (Tylenol) 1,000 mg PO 1200 [facility] Stop: 04/29/18 15:00 Last Admin: 04/29/18 12:12 Dose: 1,000 mg Artificial Tears (Tears Naturale) 2 drop EA EYE PRN PRN PRN Reason: Dry Eyes Atorvastatin Calcium (Lipitor) 20 mg PO DAILY [facility] Last Admin: 04/29/18 08:58 Dose: 20 mg Bupropion HCl (Wellbutrin Xl) 150 mg PO BID [facility] Last Admin: 04/29/18 08:58 Dose: 150 mg Al Hydroxide/Mg Hydroxide 60 ml/ Lidocaine HCl 30 ml/Diphenhydramine HCl 75 mg 0 ml SSW PRN PRN PRN Reason: Mouth Irritation Last Admin: 04/29/18 08:57 Dose: 10 ml Guaifenesin (Robitussin Sf) 200 mg PO Q4H PRN PRN Reason: Cough Guaifenesin/Dextromethorphan (Robitussin Dm) 15 ml PO Q4H PRN PRN Reason: Cough Hydralazine HCl (Apresoline) 10 mg SLOW IVP Q4H PRN PRN Reason: SBP > 180 and HR < 70 Sodium Chloride (Normal Saline 0.9%) 1,000 mls @ 100 mls/hr IV .Q10H [facility] Last Admin: 04/29/18 02:20 Dose: 1,000 mls Cefepime HCl 2 gm/ Sodium (Chloride) 100 mls @ 200 mls/hr IVPB 0100,0900,1700 [facility] Levothyroxine Sodium (Synthroid) 200 mcg PO 0600 [facility] Last Admin: 04/29/18 05:00 Dose: 200 mcg Loratadine (Claritin) 10 mg PO DAILYPRN PRN PRN Reason: Sinus Symptoms Mineral Oil/White Petrolatum (Eucerin Cream) 0 gm TOP BIDPRN PRN PRN Reason: Dry Skin Ondansetron HCl (Zofran) 8 mg SLOW IVP Q6H PRN PRN Reason: Nausea/Vomiting Ondansetron HCl (Zofran Odt) 4 mg PO Q6H PRN PRN Reason: Nausea/Vomiting Oxycodone/Acetaminophen (Percocet 5/325) 1 tab PO Q4H PRN PRN Reason: Mild-Moderate Pain (1-5) Oxycodone/Acetaminophen (Percocet 5/325) 2 tab PO Q4H PRN PRN Reason: Moderate to Severe Pain (6-10) Last Admin: 04/29/18 08:58 Dose: 2 tab Pantoprazole Sodium (Protonix) 40 mg PO BID [facility] Last Admin: 04/29/18 08:58 Dose: 40 mg Senna/Docusate Sodium (Senokot S) 2 tab PO BIDPRN PRN PRN Reason: Constipation Sodium Chloride ([place] Nasal [place] 0.65%) 0 ml EA NARE QIDPRN PRN PRN Reason: Nasal Congestion Throat Lozenges (Cepastat Lozenges) 1 nikkie PO Q2H PRN PRN Reason: Sore Throat Zolpidem Tartrate (Ambien) 5 mg PO HSPRN PRN PRN Reason: Insomnia Zonisamide (Zonisamide) 50 mg PO BIDPRN PRN PRN Reason: tingling sensation in legs
[2018-04-29] MEDS ORDERED: Dexamethasone 10 MG/ML VIAL SLOW IVP SCH (17:30)
[2018-04-30] MEDS: Cefepime 2 GM in Sodium Chloride 0.9% 100 ML IVPB SCH ×3 (00:57→17:23)
[2018-04-30] MEDS: oxyCODONE/Acetaminophen 5 mg/325 mg Tablet PO PRN ×5 (00:58→19:11)
[2018-04-30] MEDS: Levothyroxine Sodium 100 MCG TAB PO SCH (05:13)
[2018-04-30 05:46] LABS: Platelet Count 27 thou/uL (130-400)
[2018-04-30 05:57] LABS: ALT (SGPT) 8 U/L (8-55); AST (SGOT) 12 U/L (5-34); Albumin 2.9 g/dL (3.4-4.8); Alkaline Phosphatase 152 U/L (40-150); Anion Gap 15 mmol/L (10-20); BUN (Urea Nitrogen) 7 mg/dL (8.4-25.7); Bilirubin, Total 0.6 mg/dL (0.2-1.2); Calc. Creatinine Clearance 134 mL/min (70-130); Calcium 8.7 mg/dL (7.8-10.44); Carbon Dioxide 19 mmol/L (23-31); Chloride 99 mmol/L (98-107); Estimated GFR-MDRD Greater than 90; Globulin 3.1 g/dL (2.4-3.5); Glucose 124 mg/dL (80-115); Potassium 3.8 mmol/L (3.5-5.1); Sodium 129 mmol/L (136-145)
[2018-04-30 06:31] LABS: Band 16 % (5-11); Hemoglobin 8.5 g/dL (14.0-18.0); Lymphocytes 16 % (21-51); MDiff Complete? YES; Mean Corpuscular HGB CONC 32.3 g/dL (32.0-36.0); Mean Corpuscular Hemoglobin 27.7 pg (27.0-31.0); Mean Corpuscular Volume 85.7 fL (78.0-98.0); Mean Platelet Volume 9.4 fL (7.4-10.4); Metamyelocyte 2 % (0-0); Monocytes 10 % (0-10); Neutrophil 56 % (42-75); Platelet Morphology Comment Appears Decreased; Red Blood Cell (RBC) Count 3.08 mill/uL (4.70-6.10); White Blood Cell (WBC) Count 1.8 thou/uL (4.8-10.8)
[2018-04-30] MEDS: Aluminum & Magnesium Hydroxide 60 ML, Lidocaine 2% Viscous Solution 30 ML, diphenhydrAM... SSW PRN (10:03)
[2018-04-30] MEDS: Atorvastatin Calcium 20 MG TAB PO SCH (10:04)
[2018-04-30] MEDS: Bupropion 150 MG XL TAB PO SCH ×2 (10:04→20:34)
--- NOTE | 2018-04-30 11:46 | PDOC.PN ---
- Subjective Encounter Start Date: 04/30/18 Encounter Start Time: 07:00 Patient seen and examined. No new complaints. No overnight events - Objective Resuscitation Status - Order Detail: 04/27/18 19:41 Resuscitation Status Routine Resuscitation Status: DNAR: NO Resuscitation Discussed with: Patient MORRIS Reviewed: Yes Vital Signs & Weight: Vital Signs (12 hours) Temp Pulse Resp BP Pulse Ox 04/30/18 08:00 97.2 F L 68 18 106/57 L 98 04/30/18 03:50 97.4 F L 76 20 95/50 L 96 Weight Admit Weight 174 lb 11.2 oz Weight 174 lb 11.2 oz I&O: 04/29/18 04/30/18 05/01/18 06:59 06:59 06:59 Intake Total 1900 3380 Balance 1900 3380 Result Diagrams: 04/30/18 05:25 04/30/18 05:25 Phys Exam - Physical Examination Constitutional: NAD HEENT: PERRLA, moist MMs, sclera anicteric Neck: no JVD, supple Respiratory: no wheezing, no rales, no rhonchi Cardiovascular: RRR, no significant murmur, no rub Gastrointestinal: soft, non-tender, no distention, positive bowel sounds Musculoskeletal: pulses present, edema present Neurological: non-focal, normal sensation Lymphatic: no nodes Psychiatric: normal affect, A&O x 3 Skin: no rash, normal turgor Dx/Plan (1) Hyponatremia Code(s): E87.1 - HYPO-OSMOLALITY AND HYPONATREMIA Status: Acute (2) Neutropenic fever Code(s): D70.9 - NEUTROPENIA, UNSPECIFIED; R50.81 - FEVER PRESENTING WITH CONDITIONS CLASSIFIED ELSEWHERE Status: Acute (3) Pancytopenia due to chemotherapy Code(s): D61.810 - ANTINEOPLASTIC CHEMOTHERAPY INDUCED PANCYTOPENIA Status: Acute (4) Thrombocytopenia Code(s): D69.6 - THROMBOCYTOPENIA, UNSPECIFIED Status: Acute (5) Anxiety and depression Code(s): F41.9 - ANXIETY DISORDER, UNSPECIFIED; F32.9 - MAJOR DEPRESSIVE DISORDER, SINGLE EPISODE, UNSPECIFIED Status: Chronic (6) Dyslipidemia Code(s): E78.5 - HYPERLIPIDEMIA, UNSPECIFIED Status: Chronic (7) GERD (gastroesophageal reflux disease) Code(s): K21.9 - GASTRO-ESOPHAGEAL REFLUX DISEASE WITHOUT ESOPHAGITIS Status: Chronic (8) Hypertension Code(s): I10 - ESSENTIAL (PRIMARY) HYPERTENSION Status: Chronic (9) Hypothyroidism Code(s): E03.9 - HYPOTHYROIDISM, UNSPECIFIED Status: Chronic (10) Metastatic primary lung cancer Code(s): C34.90 - MALIGNANT NEOPLASM OF UNSP PART OF UNSP BRONCHUS OR LUNG Status: Chronic (11) Edema extremities Code(s): R60.0 - LOCALIZED EDEMA Status: Acute (12) Bacteremia due to Pseudomonas Code(s): R78.81 - BACTEREMIA Status: Acute - Plan cont current plan of care, continue antibiotics * continue cefepime today * tomorrow will discharge on oral ciprofloxacin * medication reviewed as below * symptomatic treatment. Review of Systems - Review of Systems ENT: negative: Ear Pain, Ear Discharge, Nose Pain, Nose Discharge, Nose Congestion, Mouth Pain, Mouth Swelling, Throat Pain, Throat Swelling, Other Respiratory: negative: Cough, Dry, Shortness of Breath, Hemoptysis, SOB with Excertion, Pleuritic Pain, Sputum, Wheezing Cardiovascular: negative: chest pain, palpitations, orthopnea, paroxysmal nocturnal dyspnea, edema, light headedness, other Gastrointestinal: negative: Nausea, Vomiting, Abdominal Pain, Diarrhea, Constipation, Melena, Hematochezia, Other Genitourinary: negative: Dysuria, Frequency, Incontinence, Hematuria, Retention , Other Musculoskeletal: negative: Neck Pain, Shoulder Pain, Arm Pain, Back Pain, Hand Pain, Leg Pain, Foot Pain, Other - Medications/Allergies Allergies/Adverse Reactions: Allergies Allergy/AdvReac Type Severity Reaction Status Date / Time adhesive tape Allergy Mild Verified 04/05/18 16:12 Medications: Current Medications Acetaminophen (Tylenol) 650 mg PO Q4H PRN PRN Reason: Fever/Mild Pain Last Admin: 04/27/18 20:53 Dose: 650 mg Acetaminophen (Tylenol) 650 mg [place] Q4H PRN PRN Reason: Headache/Fever/Mild Pain (1-3) Artificial Tears (Tears Naturale) 2 drop EA EYE PRN PRN PRN Reason: Dry Eyes Atorvastatin Calcium (Lipitor) 20 mg PO DAILY [facility] Last Admin: 04/30/18 10:04 Dose: 20 mg Bupropion HCl (Wellbutrin Xl) 150 mg PO BID [facility] Last Admin: 04/30/18 10:04 Dose: 150 mg Al Hydroxide/Mg Hydroxide 60 ml/ Lidocaine HCl 30 ml/Diphenhydramine HCl 75 mg 0 ml SSW PRN PRN PRN Reason: Mouth Irritation Last Admin: 04/30/18 10:03 Dose: 10 ml Guaifenesin (Robitussin Sf) 200 mg PO Q4H PRN PRN Reason: Cough Guaifenesin/Dextromethorphan (Robitussin Dm) 15 ml PO Q4H PRN PRN Reason: Cough Hydralazine HCl (Apresoline) 10 mg SLOW IVP Q4H PRN PRN Reason: SBP > 180 and HR < 70 Cefepime HCl 2 gm/ Sodium (Chloride) 100 mls @ 200 mls/hr IVPB 0100,0900,1700 [facility] Last Admin: 04/30/18 10:03 Dose: 100 mls Levothyroxine Sodium (Synthroid) 200 mcg PO 0600 [facility] Last Admin: 04/30/18 05:13 Dose: 200 mcg Loratadine (Claritin) 10 mg PO DAILYPRN PRN PRN Reason: Sinus Symptoms Mineral Oil/White Petrolatum (Eucerin Cream) 0 gm TOP BIDPRN PRN PRN Reason: Dry Skin Ondansetron HCl (Zofran) 8 mg SLOW IVP Q6H PRN PRN Reason: Nausea/Vomiting Ondansetron HCl (Zofran Odt) 4 mg PO Q6H PRN PRN Reason: Nausea/Vomiting Oxycodone/Acetaminophen (Percocet 5/325) 1 tab PO Q4H PRN PRN Reason: Mild-Moderate Pain (1-5) Oxycodone/Acetaminophen (Percocet 5/325) 2 tab PO Q4H PRN PRN Reason: Moderate to Severe Pain (6-10) Last Admin: 04/30/18 10:03 Dose: 2 tab Pantoprazole Sodium (Protonix) 40 mg PO BID [facility] Last Admin: 04/30/18 10:04 Dose: 40 mg Senna/Docusate Sodium (Senokot S) 2 tab PO BIDPRN PRN PRN Reason: Constipation Sodium Chloride ([place] Nasal [place] 0.65%) 0 ml EA NARE QIDPRN PRN PRN Reason: Nasal Congestion Throat Lozenges (Cepastat Lozenges) 1 nikkie PO Q2H PRN PRN Reason: Sore Throat Zolpidem Tartrate (Ambien) 5 mg PO HSPRN PRN PRN Reason: Insomnia Zonisamide (Zonisamide) 50 mg PO BIDPRN PRN PRN Reason: tingling sensation in legs
--- NOTE | 2018-04-30 17:50 | RAD ---
PA AND LATERAL CHEST X-RAY: 04/30/2018 HISTORY: Patient with malignant neoplasm of lung. Metastatic disease. Possible pneumonia. COMPARISON: 04/10/2018 FINDINGS: A left subclavian Mediport catheter remains in place and unchanged in position. The mass-like density within the lateral aspect, right upper lung zone, is again present, which is sh own to represent a necrotic-appearing mass on CT thorax from 03/31/2018. The density of this structu re has diminished when compared to the prior study, but this mass-like opacity again persists, with d estructive changes of the right lateral and anterolateral ribs, in the region of the mass-like densit y. There is also a mass seen overlying the lower lobes on the lateral projection, which is not well seen on the frontal projection, but probably overlies the left hilar region and is shown to represent a left lower lobe mass on prior CT thorax. There are increased interstitial densities present bilat erally. The cardiac silhouette and pulmonary vasculature are within normal limits. Vascular calcification is seen in the thoracic aorta. There is partial visualization of an aortic stent graft. IMPRESSION: 1. Mass-like opacity within the right lateral upper lung zone, which is less dense than on the prior study, but this was shown to represent a necrotic mass on prior CT examination. There is adjacent d estruction of lateral right-sided ribs. 2. Left lower lobe mass, which overlies the left hilar region, also seen on prior CT thorax and less well delineated on prior chest x-ray. 3. Increased interstitial densities bilaterally and greater in the lower lung zones, which appear in creased from the prior study. Infectious process is a possibility. No new area of opacity or consol idation is appreciated. 4. Continued followup is recommended. POS: MARYJANE
[2018-04-30] MEDS: Zonisamide 25 MG CAP PO PRN (20:34)
[2018-05-01] MEDS: oxyCODONE/Acetaminophen 5 mg/325 mg Tablet PO PRN ×6 (00:32→23:14)
[2018-05-01] MEDS: Cefepime 2 GM in Sodium Chloride 0.9% 100 ML IVPB SCH ×3 (00:59→17:15)
[2018-05-01] MEDS: Levothyroxine Sodium 100 MCG TAB PO SCH (06:17)
[2018-05-01 06:49] LABS: #Lymphocytes 0.7 thou/uL (1.20-3.40); #Monocytes 0.5 thou/uL (0.11-0.59); #Neutrophils 2.1 thou/uL (1.40-6.50); %Basophils 0.3 % (0.0-1.0); %Eosinophils 0.6 % (0.0-10.0); %Lymphocytes 20.2 % (21.0-51.0); %Monocytes 14.3 % (0.0-10.0); %Neutrophils 64.6 % (42.0-75.0); Hemoglobin 8.5 g/dL (14.0-18.0); Mean Corpuscular HGB CONC 32.3 g/dL (32.0-36.0); Mean Corpuscular Hemoglobin 27.6 pg (27.0-31.0); Mean Corpuscular Volume 85.4 fL (78.0-98.0); Mean Platelet Volume 10.1 fL (7.4-10.4); Platelet Count 31 thou/uL (130-400); RBC Distribution Width 15.2 % (11.5-14.5); Red Blood Cell (RBC) Count 3.09 mill/uL (4.70-6.10); White Blood Cell (WBC) Count 3.3 thou/uL (4.8-10.8)
[2018-05-01 07:04] LABS: Anion Gap 14 mmol/L (10-20); BUN (Urea Nitrogen) 6 mg/dL (8.4-25.7); Calc. Creatinine Clearance 140 mL/min (70-130); Carbon Dioxide 22 mmol/L (23-31); Chloride 101 mmol/L (98-107); Estimated GFR-MDRD Greater than 90; Glucose 97 mg/dL (80-115); Magnesium 1.7 mg/dL (1.6-2.6); Potassium 3.3 mmol/L (3.5-5.1); Sodium 134 mmol/L (136-145)
[2018-05-01 07:08] LABS: Phosphorus 1.7 mg/dL (2.3-4.7)
[2018-05-01] MEDS ORDERED: Potassium Phosphate 30 MMOL in Sodium Chloride 0.9% 500 ML IVPB SCH (07:30)
--- NOTE | 2018-05-01 08:36 | PQF ---
DEEP ALSTON, KYLIE LAO MD [id number] CLINICAL DOCUMENTATION IMPROVEMENT CLARIFICATION FORM: ICD-10 Updated PLEASE DO AN ADDENDUM TO THE PROGRESS NOTE WITH ANY DOCUMENTATION UPDATES OR ADDITIONS AND CARRY THROUGH TO DC SUMMARY. THANK YOU. DATE: 05/01 ATTN : DR. KYLIE CUBA Please exercise your independent, professional judgment in responding to the clarification form. Clinical indicators are provided on the bottom of this form for your review. Please check appropriate box(es): [x ] Sepsis due to: (Pna, UTI, gangrenous gall bladder, etc.) _due to pneumonia [ ] Localized infection without sepsis [ ] Other diagnosis [ ] Unable to determine In addition, please specify: Present on Admission (POA): [ x ] Yes [ ] No [ ] Unable to determine For continuity of documentation, please document condition throughout progress notes and discharge summary. Thank You. CLINICAL INDICATORS - SIGNS / SYMPTOMS / LABS WBC 1.0 (04/27) T: 101.7 (04/27, 1900) HR 111 (04/27) BLOOD CX 1 OF 2: PSEUDOMONAS AERUGINOSA H&P 04/27 (JOCELYN): HX OF PRESENT ILLNESS: PT PRESENTED TO [facility] TODAY & LOOKED VERY FATIGUED & RUNDOWN; WBC WAS 1000, & PLATELET COUNT WAS 14,000. HE WAS ADMITTED FOR FLUIDS & PLATELET TRANSFUSION IN HOSPITAL. AFTER PATIENT STARTED GETTING HIS PLATELET TRANSFUSION, HE DID SPIKE A FEVER TO 101. HE DENIED HAVING FEVERS PREVIOUS TO THIS, POSSIBLY R/T TRANSFUSION REACTION, THOUGH HE IS AT HIGH RISK FOR HAVING AN INFECTION WELL. ASSESSMENT: 1) NEUTROPENIA, NOW W/FEVER, POSSIBLY REACTION TO PLATELET TRANSFUSION. HOWEVER, THE PT IS AT HIGH RISK FOR INFECTION. 7) SEPSIS. WILL WILL CONTINUE IVF & ANTIBIOTICS PN 04/29 & (BEREKET): DX/PLAN: 2) NEUTROPENIC FEVER; 12) BACTEREMIA D/T PSEUDOMONAS CXR 04/30: IMPRESSION: 3) INCREASED INTERSTITIAL DENSITIES BILATERALLY & GREATER IN THE LOWER LUNG ZONES, WHICH APPEAR INCREASED FROM THE PRIOR STUDY. INFECTIOUS PROCESS IS A POSSIBILITY. NO FURTHER MENTION OF SEPSIS TO DATE RISK FACTORS: METASTATIC LUNG CANCER RECEIVING CHEMO POSITIVE BLOOD CULTURES 1 OF 2 (PSEUDOMONAS AERUGINOSA) TREATMENTS: IV ANTIBIOTIC (CEFEPIME (04/27 - PRESENT) IVF (NS 04/27 -) INFECTIOUS DX CONSULT THANK YOU! Tara (This form is maintained as a part of the permanent medical record) 2014 [employer]. All Rights Reserved Tara Miguel RN, BSN [email or web address] Office: [phone] [facility]
[2018-05-01] MEDS: Bupropion 150 MG XL TAB PO SCH ×2 (09:02→21:27)
[2018-05-01] MEDS: Atorvastatin Calcium 20 MG TAB PO SCH (09:02)
--- NOTE | 2018-05-01 12:26 | DIS ---
DATE OF ADMISSION: 04/27/2018 DATE OF DISCHARGE: 05/01/2018 PRIMARY CARE PHYSICIAN: Dr. Corey Nava. DISCHARGE DISPOSITION: Home. PRIMARY DISCHARGE DIAGNOSES: 1. Pseudomonas bacteremia. 2. Neutropenic fever. 3. Severe thrombocytopenia, status post platelet transfusion. 4. Severe anemia, status post packed red blood cells transfusion. 5. Sepsis due to pneumonia. SECONDARY DISCHARGE DIAGNOSES: 1. Metastatic primary lung cancer. 2. Hypothyroidism. 3. Hypertension. 4. Gastroesophageal reflux disease. 5. Dyslipidemia. 6. Anxiety and depression. PRIMARY PROCEDURE/OPERATION: None. RADIOLOGICAL INVESTIGATION: Chest x-ray while in hospital showed masslike opacity in the right lateral lung zone. SIGNIFICANT LABORATORY DATA: WBC 3.3, hemoglobin 8.5, platelet 31. Sodium 134, potassium 3.3, BUN 6, creatinine 0.58, calcium 9.0, magnesium 1.7, phosphorus 1.7. Urinalysis, normal. Blood culture was positive for Pseudomonas. Urine culture, negative. DISCHARGE MEDICATIONS: 1. Levofloxacin 500 mg p.o. daily for 10 days. 2. Zonisamide 50 mg p.o. p.r.n. as directed. 3. Synthroid 200 mcg p.o. daily. 4. Prevacid 30 mg p.o. b.i.d. 5. Bupropion 150 mg b.i.d. 6. Lipitor 20 mg p.o. daily. 7. Aspirin 325 mg p.o. daily. 8. Oxycodone 1 or 2 tablets q.4 hourly p.r.n. CONTRAINDICATION: None. CODE STATUS: DNR. 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 TEST RESULTS PENDING ON DISCHARGE: None. ALLERGIES: ADHESIVE TAPE. DISCHARGE PLAN: Posthospital, the patient will follow up with primary care physician. The patient will make appointment with Oncology. HOSPITAL COURSE: A 68-year-old male, who has underlying history of metastatic lung cancer. He is getting chemotherapy, and after chemotherapy, the patient was brought to the hospital for fever and feeling weak. The patient was having neutropenic fever. During this admission, the patient required 1 unit of PRBC and 2 units of platelet transfusion. The patient was treated with cefepime while in hospital. His blood culture was positive for Pseudomonas, and the repeat blood culture was negative. Urine culture is negative. His sepsis is attributed to be due to postobstructive pneumonia. On discharge, we changed to levofloxacin based on culture and sensitivity result. While in hospital, his blood pressure was running low, and that is why we discontinued antihypertensive medication upon discharge. Rest of medications, he will continue, and he will follow up with Oncology for further care. PHYSICAL EXAMINATION: The patient is seen and examined at bedside today. VITAL SIGNS: Currently, temperature 97.4, pulse 68, respiratory rate 16, saturation 100% on room air, blood pressure 113/62. Weight 174 pounds. GENERAL: The patient is currently alert, awake, no obvious acute distress. HEENT: Head; normocephalic and atraumatic. Eyes; pupils are round and reactive to light. Extraocular muscle intact. ENT; oropharynx within normal limit. Moist mucous membrane. No oral lesion. No pharyngeal erythema. No exudate. NECK: Supple. No JVD. LUNGS: Clear. CARDIAC: S1 and S2. Regular. EXTREMITIES: Trace edema noted. NEUROLOGIC: Nonfocal examination. Overall, the patient is medically stable for discharge. On the day of discharge, we have replaced potassium phosphate for his low potassium and low phosphorus. The patient is completely asymptomatic. Job ID: [id number]
--- NOTE | 2018-05-01 14:32 | CON ---
DATE OF CONSULTATION: 05/01/2018 REASON FOR CONSULTATION: Bacteremia. HISTORY OF PRESENT ILLNESS: A 68-year-old who has a history of GERD with aortic aneurysm with recent endovascular repair and newly diagnosed metastatic lung cancer, [id number], who started his first course of chemotherapy through a port placed in the left subclavian location. The patient has developed neutropenia, thrombocytopenia, and hyponatremia. He was admitted because of those abnormalities, but then developed a fever in addition to that. After a platelet transfusion, one out of two sets of blood cultures have yielded Pseudomonas aeruginosa. Currently, he is sitting by the bedside. He is feeling better after antimicrobials were started. He denies headaches. No shortness of breath. A little bit of cough with sputum production, which is purulent. No back pain. No abdominal pain or diarrhea. No genitourinary symptoms. No nasal symptoms. No neurological symptoms. PAST MEDICAL HISTORY: Includes; 1. Abdominal aortic aneurysm status post endovascular repair. 2. GERD. 3. Degenerative joint disease. 4. Peripheral vascular disease. 5. Chronic smoking. 6. Right shoulder rotator cuff repair. ALLERGIES: NO DRUG ALLERGIES. SURGICAL HISTORY: 1. Appendectomy. 2. Endovascular repair for the aneurysm. 3. Shoulder surgery. SOCIAL HISTORY: He smoked heavily until the recent cancer diagnosis. He drinks occasionally. He is , lives with . FAMILY HISTORY: Lung cancer. CURRENT MEDICATIONS: 1. Atorvastatin. 2. Cefepime. 3. Hydralazine. 4. Ondansetron. 5. Zonisamide. PHYSICAL EXAMINATION: VITAL SIGNS: T-max 97.4, blood pressure 109/54, pulse 75, respirations 16, and O2 saturation 99%. SKIN: A port without inflammatory changes. Has petechiae in the gluteal area and groin. Some livedo reticularis lesions there as well. GENERAL: The patient is voiding spontaneously in the toilet. HEENT: No lymphadenopathy. Alopecia. Ocular movements conjugate. Sclerae white. Pupils are equal. Pale conjunctivae. Oral cavity with numerous missing teeth. Moist mucosa. No lesions. NECK: Supple. No jugular vein distention. No carotid bruits. No thyromegaly. LUNGS: A few coarse crackles in the right and left base. No wheezing. HEART: S1 and S2. Regular rate. No murmurs. ABDOMEN: Soft, not distended or tender. No ascites. No bladder distention. No genital abnormalities. MUSCULOSKELETAL: No joint inflammatory activity. The patient has 2+ edema in the lower extremities with some stasis dermatitis changes. Moves extremities equally. NEUROLOGIC: Cognitive function appears to be intact. LABORATORY DATA: White cell count is up to 3.3, hemoglobin 8.5, and platelets 31,000. Sodium 134 and creatinine 0.58. Liver profile normal; alkaline phosphatase 152, albumin 2.9. Urinalysis normal. Microbiology with P aeruginosa with a broad susceptibility profile, 1/2 sets of blood cultures. Two more sets have been drawn from the left subclavian vein port to make sure the port is not colonized, those are still pending. Chest x-ray with masslike opacity of right lateral upper lung zone, less dense on the prior study, which is a necrotic mass, demonstrated by CT exam. There is associated adjacent destruction of the lateral right-sided ribs, which is causing the patient's pain there. A left lower lobe mass in the left hilar region. Interstitial densities bilaterally greater than the lower lung zones, which appear increased. ASSESSMENT: 1. Peripheral vascular disease with previous aortic aneurysm with endovascular repair. 2. Recently diagnosed [id number] lung cancer with rib cage invasion and a mass in the left hilar region, currently status post 1st course of chemotherapy with moderate neutropenia. 3. Pseudomonas aeruginosa bacteremia, 1/3 sets thus far. DISCUSSION: Most likely scenario is lower respiratory tract infection secondary to Pseudomonas aeruginosa associated with neutropenia. If the port cultures remain negative by tomorrow, discharge on oral quinolone for approximately 2 weeks. No other sites of involvement are apparent at this time. Job ID: [id number]
--- NOTE | 2018-05-01 14:36 | PDOC.PN ---
- Subjective Encounter Start Date: 05/01/18 Encounter Start Time: 14:35 Patient seen and examined. No new complaints. No overnight events - Objective Resuscitation Status - Order Detail: 04/27/18 19:41 Resuscitation Status Routine Resuscitation Status: DNAR: NO Resuscitation Discussed with: Patient MORRIS Reviewed: Yes Vital Signs & Weight: Vital Signs (12 hours) Temp Pulse Resp BP Pulse Ox 05/01/18 11:54 97.4 F L 75 16 109/54 L 99 05/01/18 08:00 97.4 F L 68 16 113/62 100 Weight Admit Weight 174 lb 11.2 oz Weight 174 lb 11.2 oz I&O: 04/30/18 05/01/18 05/02/18 06:59 06:59 06:59 Intake Total 3380 1100 Balance 3380 1100 Result Diagrams: 05/01/18 06:30 05/01/18 06:30 Phys Exam - Physical Examination Constitutional: NAD HEENT: PERRLA, moist MMs, sclera anicteric Neck: no JVD, supple Respiratory: no wheezing, no rales, no rhonchi Cardiovascular: RRR, no significant murmur, no rub Gastrointestinal: soft, non-tender, no distention, positive bowel sounds Musculoskeletal: no edema, pulses present Neurological: non-focal, normal sensation, moves all 4 limbs Psychiatric: normal affect, A&O x 3 Skin: no rash, normal turgor Dx/Plan (1) Hyponatremia Code(s): E87.1 - HYPO-OSMOLALITY AND HYPONATREMIA Status: Acute (2) Neutropenic fever Code(s): D70.9 - NEUTROPENIA, UNSPECIFIED; R50.81 - FEVER PRESENTING WITH CONDITIONS CLASSIFIED ELSEWHERE Status: Acute (3) Pancytopenia due to chemotherapy Code(s): D61.810 - ANTINEOPLASTIC CHEMOTHERAPY INDUCED PANCYTOPENIA Status: Acute (4) Thrombocytopenia Code(s): D69.6 - THROMBOCYTOPENIA, UNSPECIFIED Status: Acute (5) Anxiety and depression Code(s): F41.9 - ANXIETY DISORDER, UNSPECIFIED; F32.9 - MAJOR DEPRESSIVE DISORDER, SINGLE EPISODE, UNSPECIFIED Status: Chronic (6) Dyslipidemia Code(s): E78.5 - HYPERLIPIDEMIA, UNSPECIFIED Status: Chronic (7) GERD (gastroesophageal reflux disease) Code(s): K21.9 - GASTRO-ESOPHAGEAL REFLUX DISEASE WITHOUT ESOPHAGITIS Status: Chronic (8) Hypertension Code(s): I10 - ESSENTIAL (PRIMARY) HYPERTENSION Status: Chronic (9) Hypothyroidism Code(s): E03.9 - HYPOTHYROIDISM, UNSPECIFIED Status: Chronic (10) Metastatic primary lung cancer Code(s): C34.90 - MALIGNANT NEOPLASM OF UNSP PART OF UNSP BRONCHUS OR LUNG Status: Chronic (11) Edema extremities Code(s): R60.0 - LOCALIZED EDEMA Status: Acute (12) Bacteremia due to Pseudomonas Code(s): R78.81 - BACTEREMIA Status: Acute - Plan cont current plan of care, continue antibiotics * medication reviewed as below * symptomatic treatment * CONTINUE LEVAQUIN ON DISCHARGE * if culture negative by tomorrow, will consider discharge tomorrow as per ID recommendation. Review of Systems - Review of Systems ENT: negative: Ear Pain, Ear Discharge, Nose Pain, Nose Discharge, Nose Congestion, Mouth Pain, Mouth Swelling, Throat Pain, Throat Swelling, Other Respiratory: negative: Cough, Dry, Shortness of Breath, Hemoptysis, SOB with Excertion, Pleuritic Pain, Sputum, Wheezing Cardiovascular: negative: chest pain, palpitations, orthopnea, paroxysmal nocturnal dyspnea, edema, light headedness, other Gastrointestinal: negative: Nausea, Vomiting, Abdominal Pain, Diarrhea, Constipation, Melena, Hematochezia, Other Genitourinary: negative: Dysuria, Frequency, Incontinence, Hematuria, Retention , Other Musculoskeletal: negative: Neck Pain, Shoulder Pain, Arm Pain, Back Pain, Hand Pain, Leg Pain, Foot Pain, Other - Medications/Allergies Allergies/Adverse Reactions: Allergies Allergy/AdvReac Type Severity Reaction Status Date / Time adhesive tape Allergy Mild Verified 04/05/18 16:12 Medications: Current Medications Acetaminophen (Tylenol) 650 mg PO Q4H PRN PRN Reason: Fever/Mild Pain Last Admin: 04/27/18 20:53 Dose: 650 mg Acetaminophen (Tylenol) 650 mg RI Q4H PRN PRN Reason: Headache/Fever/Mild Pain (1-3) Artificial Tears (Tears Naturale) 2 drop EA EYE PRN PRN PRN Reason: Dry Eyes Atorvastatin Calcium (Lipitor) 20 mg PO DAILY [facility] Last Admin: 05/01/18 09:02 Dose: 20 mg Bupropion HCl (Wellbutrin Xl) 150 mg PO BID [facility] Last Admin: 05/01/18 09:02 Dose: 150 mg Al Hydroxide/Mg Hydroxide 60 ml/ Lidocaine HCl 30 ml/Diphenhydramine HCl 75 mg 0 ml SSW PRN PRN PRN Reason: Mouth Irritation Last Admin: 04/30/18 10:03 Dose: 10 ml Guaifenesin (Robitussin Sf) 200 mg PO Q4H PRN PRN Reason: Cough Guaifenesin/Dextromethorphan (Robitussin Dm) 15 ml PO Q4H PRN PRN Reason: Cough Hydralazine HCl (Apresoline) 10 mg SLOW IVP Q4H PRN PRN Reason: SBP > 180 and HR < 70 Cefepime HCl 2 gm/ Sodium (Chloride) 100 mls @ 200 mls/hr IVPB 0100,0900,1700 [facility] Last Admin: 05/01/18 09:02 Dose: 100 mls Levothyroxine Sodium (Synthroid) 200 mcg PO 0600 [facility] Last Admin: 05/01/18 06:17 Dose: 200 mcg Loratadine (Claritin) 10 mg PO DAILYPRN PRN PRN Reason: Sinus Symptoms Mineral Oil/White Petrolatum (Eucerin Cream) 0 gm TOP BIDPRN PRN PRN Reason: Dry Skin Ondansetron HCl (Zofran) 8 mg SLOW IVP Q6H PRN PRN Reason: Nausea/Vomiting Ondansetron HCl (Zofran Odt) 4 mg PO Q6H PRN PRN Reason: Nausea/Vomiting Oxycodone/Acetaminophen (Percocet 5/325) 1 tab PO Q4H PRN PRN Reason: Mild-Moderate Pain (1-5) Oxycodone/Acetaminophen (Percocet 5/325) 2 tab PO Q4H PRN PRN Reason: Moderate to Severe Pain (6-10) Last Admin: 05/01/18 09:59 Dose: 2 tab Pantoprazole Sodium (Protonix) 40 mg PO BID [facility] Last Admin: 05/01/18 09:02 Dose: 40 mg Senna/Docusate Sodium (Senokot S) 2 tab PO BIDPRN PRN PRN Reason: Constipation Sodium Chloride ([place] Nasal [place] 0.65%) 0 ml EA NARE QIDPRN PRN PRN Reason: Nasal Congestion Throat Lozenges (Cepastat Lozenges) 1 nikkie PO Q2H PRN PRN Reason: Sore Throat Zolpidem Tartrate (Ambien) 5 mg PO HSPRN PRN PRN Reason: Insomnia Zonisamide (Zonisamide) 50 mg PO BIDPRN PRN PRN Reason: tingling sensation in legs Last Admin: 04/30/18 20:34 Dose: 50 mg
[2018-05-01] MEDS: Zonisamide 25 MG CAP PO PRN (17:15)
[2018-05-01 20:12] VITALS: TEMP 97.4
[2018-05-02] MEDS: Cefepime 2 GM in Sodium Chloride 0.9% 100 ML IVPB SCH ×2 (00:31→08:54)
[2018-05-02] MEDS: oxyCODONE/Acetaminophen 5 mg/325 mg Tablet PO PRN ×2 (04:08→08:53)
[2018-05-02] MEDS: Levothyroxine Sodium 100 MCG TAB PO SCH (05:21)
[2018-05-02 08:23] VITALS: BP 114/58
[2018-05-02] MEDS ORDERED: K-Phos Neutral 250 MG TAB PO SCH ×2 (08:30→12:00)
[2018-05-02] MEDS: Bupropion 150 MG XL TAB PO SCH (08:55)
[2018-05-02] MEDS: Atorvastatin Calcium 20 MG TAB PO SCH (08:55)
--- NOTE | 2018-05-02 10:51 | DIS ---
DATE OF ADMISSION: 04/27/2018 DATE OF DISCHARGE: 05/02/2018 ADDENDUM Please see my discharge summary dictated yesterday. This patient has Pseudomonas bacteremia and he received cefepime for that. Dr. Bruce was consulted and Dr. Bruce wanted to keep him until today to see if cultures are positive or negative and today cultures are negative. In this way, the patient's bacteremia has been improved. His surveillance culture is negative. His potassium and phosphate level are low that we are replacing with potassium phosphate while in hospital with orally and the patient is also feeling sore mouth and that is why we are prescribing Magic mouthwash. All prescription sent to his pharmacy. The patient is today medically stable for discharge. The patient is seen and examined at bedside today. Please see my progress note from today for further detail. Job ID: [id number]
--- NOTE | 2018-05-02 11:26 | PDOC.PN ---
- Subjective Encounter Start Date: 05/02/18 Encounter Start Time: 07:00 Patient seen and examined. No new complaints. No overnight events - Objective Resuscitation Status - Order Detail: 04/27/18 19:41 Resuscitation Status Routine Resuscitation Status: DNAR: NO Resuscitation Discussed with: Patient MORRIS Reviewed: Yes Vital Signs & Weight: Vital Signs (12 hours) Temp Pulse Resp BP Pulse Ox 05/02/18 08:00 97.4 F L 83 16 114/58 L 96 Weight Admit Weight 174 lb 11.2 oz Weight 174 lb 11.2 oz I&O: 05/01/18 05/02/18 05/03/18 06:59 06:59 06:59 Intake Total 1100 2420 Balance 1100 2420 Result Diagrams: 05/01/18 06:30 05/01/18 06:30 Phys Exam - Physical Examination Constitutional: NAD HEENT: PERRLA, moist MMs, sclera anicteric Neck: no JVD, supple Respiratory: no wheezing, no rales, no rhonchi Cardiovascular: RRR, no significant murmur, no rub Gastrointestinal: soft, non-tender, no distention, positive bowel sounds Musculoskeletal: pulses present, edema present Neurological: non-focal, normal sensation, moves all 4 limbs Lymphatic: no nodes Psychiatric: normal affect, A&O x 3 Skin: no rash, normal turgor Dx/Plan (1) Hyponatremia Code(s): E87.1 - HYPO-OSMOLALITY AND HYPONATREMIA Status: Acute (2) Neutropenic fever Code(s): D70.9 - NEUTROPENIA, UNSPECIFIED; R50.81 - FEVER PRESENTING WITH CONDITIONS CLASSIFIED ELSEWHERE Status: Acute (3) Pancytopenia due to chemotherapy Code(s): D61.810 - ANTINEOPLASTIC CHEMOTHERAPY INDUCED PANCYTOPENIA Status: Acute (4) Thrombocytopenia Code(s): D69.6 - THROMBOCYTOPENIA, UNSPECIFIED Status: Acute (5) Anxiety and depression Code(s): F41.9 - ANXIETY DISORDER, UNSPECIFIED; F32.9 - MAJOR DEPRESSIVE DISORDER, SINGLE EPISODE, UNSPECIFIED Status: Chronic (6) Dyslipidemia Code(s): E78.5 - HYPERLIPIDEMIA, UNSPECIFIED Status: Chronic (7) GERD (gastroesophageal reflux disease) Code(s): K21.9 - GASTRO-ESOPHAGEAL REFLUX DISEASE WITHOUT ESOPHAGITIS Status: Chronic (8) Hypertension Code(s): I10 - ESSENTIAL (PRIMARY) HYPERTENSION Status: Chronic (9) Hypothyroidism Code(s): E03.9 - HYPOTHYROIDISM, UNSPECIFIED Status: Chronic (10) Metastatic primary lung cancer Code(s): C34.90 - MALIGNANT NEOPLASM OF UNSP PART OF UNSP BRONCHUS OR LUNG Status: Chronic (11) Edema extremities Code(s): R60.0 - LOCALIZED EDEMA Status: Acute (12) Bacteremia due to Pseudomonas Code(s): R78.81 - BACTEREMIA Status: Acute - Plan cont current plan of care, continue antibiotics * medication reviewed as below * symptomatic treatment * ok to discharge today * see discharge tabitha. Review of Systems - Review of Systems ENT: negative: Ear Pain, Ear Discharge, Nose Pain, Nose Discharge, Nose Congestion, Mouth Pain, Mouth Swelling, Throat Pain, Throat Swelling, Other Respiratory: negative: Cough, Dry, Shortness of Breath, Hemoptysis, SOB with Excertion, Pleuritic Pain, Sputum, Wheezing Cardiovascular: negative: chest pain, palpitations, orthopnea, paroxysmal nocturnal dyspnea, edema, light headedness, other Gastrointestinal: negative: Nausea, Vomiting, Abdominal Pain, Diarrhea, Constipation, Melena, Hematochezia, Other Genitourinary: negative: Dysuria, Frequency, Incontinence, Hematuria, Retention , Other Musculoskeletal: negative: Neck Pain, Shoulder Pain, Arm Pain, Back Pain, Hand Pain, Leg Pain, Foot Pain, Other - Medications/Allergies Allergies/Adverse Reactions: Allergies Allergy/AdvReac Type Severity Reaction Status Date / Time adhesive tape Allergy Mild Verified 04/05/18 16:12 Medications: Current Medications Acetaminophen (Tylenol) 650 mg PO Q4H PRN PRN Reason: Fever/Mild Pain Last Admin: 04/27/18 20:53 Dose: 650 mg Acetaminophen (Tylenol) 650 mg DE Q4H PRN PRN Reason: Headache/Fever/Mild Pain (1-3) Artificial Tears (Tears Naturale) 2 drop EA EYE PRN PRN PRN Reason: Dry Eyes Atorvastatin Calcium (Lipitor) 20 mg PO DAILY [facility] Last Admin: 05/02/18 08:55 Dose: 20 mg Bupropion HCl (Wellbutrin Xl) 150 mg PO BID [facility] Last Admin: 05/02/18 08:55 Dose: 150 mg Al Hydroxide/Mg Hydroxide 60 ml/ Lidocaine HCl 30 ml/Diphenhydramine HCl 75 mg 0 ml SSW PRN PRN PRN Reason: Mouth Irritation Last Admin: 04/30/18 10:03 Dose: 10 ml Guaifenesin (Robitussin Sf) 200 mg PO Q4H PRN PRN Reason: Cough Guaifenesin/Dextromethorphan (Robitussin Dm) 15 ml PO Q4H PRN PRN Reason: Cough Hydralazine HCl (Apresoline) 10 mg SLOW IVP Q4H PRN PRN Reason: SBP > 180 and HR < 70 Cefepime HCl 2 gm/ Sodium (Chloride) 100 mls @ 200 mls/hr IVPB 0100,0900,1700 [facility] Last Admin: 05/02/18 08:54 Dose: 100 mls Levothyroxine Sodium (Synthroid) 200 mcg PO 0600 [facility] Last Admin: 05/02/18 05:21 Dose: 200 mcg Loratadine (Claritin) 10 mg PO DAILYPRN PRN PRN Reason: Sinus Symptoms Mineral Oil/White Petrolatum (Eucerin Cream) 0 gm TOP BIDPRN PRN PRN Reason: Dry Skin Ondansetron HCl (Zofran) 8 mg SLOW IVP Q6H PRN PRN Reason: Nausea/Vomiting Ondansetron HCl (Zofran Odt) 4 mg PO Q6H PRN PRN Reason: Nausea/Vomiting Oxycodone/Acetaminophen (Percocet 5/325) 1 tab PO Q4H PRN PRN Reason: Mild-Moderate Pain (1-5) Oxycodone/Acetaminophen (Percocet 5/325) 2 tab PO Q4H PRN PRN Reason: Moderate to Severe Pain (6-10) Last Admin: 05/02/18 08:53 Dose: 2 tab Pantoprazole Sodium (Protonix) 40 mg PO BID [facility] Last Admin: 05/02/18 08:55 Dose: 40 mg Phosphorus (Kphos Neutral) 500 mg PO QID-[facility] Senna/Docusate Sodium (Senokot S) 2 tab PO BIDPRN PRN PRN Reason: Constipation Sodium Chloride ([place] Nasal [place] 0.65%) 0 ml EA NARE QIDPRN PRN PRN Reason: Nasal Congestion Throat Lozenges (Cepastat Lozenges) 1 nikkie PO Q2H PRN PRN Reason: Sore Throat Zolpidem Tartrate (Ambien) 5 mg PO HSPRN PRN PRN Reason: Insomnia Zonisamide (Zonisamide) 50 mg PO BIDPRN PRN PRN Reason: tingling sensation in legs Last Admin: 05/01/18 17:15 Dose: 50 mg
== END 2018-05-02 12:57 | disposition home or self-care (01) | DRG 871 ==
LOC: ONC 15:54
PROVIDERS: ADMIT Internal Medicine; ATTEND Internal Medicine
PROC: 30233R1 Transfusion of Nonautologous Platelets into Peripheral Vein, Percutaneous Approach (ICD-10-PCS; principal; 2018-04-27)
PROC: 30233N1 Transfusion of Nonautologous Red Blood Cells into Peripheral Vein, Percutaneous Approach (ICD-10-PCS; 2018-04-29)
DX: A41.52 Sepsis due to Pseudomonas (principal); J18.9 Pneumonia, unspecified organism; D61.810 Antineoplastic chemotherapy induced pancytopenia; E87.1 Hypo-osmolality and hyponatremia; C78.7 Secondary malignant neoplasm of liver and intrahepatic bile duct; C34.11 Malignant neoplasm of upper lobe, right bronchus or lung; C78.1 Secondary malignant neoplasm of mediastinum; C78.02 Secondary malignant neoplasm of left lung; C79.89 Secondary malignant neoplasm of other specified sites; K21.9 Gastro-esophageal reflux disease without esophagitis; T45.1X5A Adverse effect of antineoplastic and immunosuppressive drugs, initial encounter; Y92.9 Unspecified place or not applicable; D70.1 Agranulocytosis secondary to cancer chemotherapy; M19.90 Unspecified osteoarthritis, unspecified site; I73.9 Peripheral vascular disease, unspecified; F17.210 Nicotine dependence, cigarettes, uncomplicated; B96.5 Pseudomonas (aeruginosa) (mallei) (pseudomallei) as the cause of diseases classified elsewhere; Z66 Do not resuscitate; R50.81 Fever presenting with conditions classified elsewhere; F41.9 Anxiety disorder, unspecified; F32.9 Major depressive disorder, single episode, unspecified; E78.5 Hyperlipidemia, unspecified; I10 Essential (primary) hypertension; E03.9 Hypothyroidism, unspecified; R60.0 Localized edema; Z80.1 Family history of malignant neoplasm of trachea, bronchus and lung
CPT/HCPCS: 36415; 36430; 71046; 80048; 80053; 81003; 82248; 82533; 83605; 83615; 83735; 84100; 84550; 85025; 86850; 86900; 86901; 87040; 87076; 87077; 87086; 87149; 87186; 93005; 93010; J0692; J1100; J1642; J7050; P9016; P9035; Q0163

== ENCOUNTER 2018-05-31 08:56 | Day surgery (SDC) | payer MEDICARE, BC ==
[~2018-05-31 08:56] MED LIST changes: +Acetaminophen 500 MG TAB PO SCH; -Iopamidol 370 76% 100 ML VIAL ONE; +diphenhydrAMINE 25 MG CAP PO SCH
[2018-05-31] MEDS ORDERED: Sodium Chloride 0.9% 20 ML ONE (09:10)
[2018-05-31 12:55] LABS: Hemoglobin 6.9 g/dL (14.0-18.0); Platelet Count 77 thou/uL (130-400)
[2018-05-31 14:55] VITALS: BP 116/60; TEMP 98.5
== END 2018-05-31 14:56 | disposition home or self-care (01) ==
LOC: ONC/OP 08:56
PROVIDERS: ATTEND Internal Medicine Hematology & Oncology
PROC: 30233N1 Transfusion of Nonautologous Red Blood Cells into Peripheral Vein, Percutaneous Approach (ICD-10-PCS; principal; 2018-05-31)
DX: D64.9 Anemia, unspecified (principal); D69.6 Thrombocytopenia, unspecified; Z91.048 Other nonmedicinal substance allergy status
CPT/HCPCS: 36430; 85014; 85018; 85049; 86850; 86900; 86901; J1642; P9016; Q0163

== ENCOUNTER 2018-06-16 14:44 | Day surgery (SDC) | payer MEDICARE, BC ==
[2018-06-16] MEDS ORDERED: Acetaminophen 500 MG TAB PO SCH (14:45)
[2018-06-16] MEDS ORDERED: diphenhydrAMINE 25 MG CAP PO SCH (14:45)
[2018-06-16] MEDS ORDERED: Morphine ER 30 MG TAB PO SCH (21:00)
[2018-06-16] MEDS ORDERED: HYDROcodone/Acetaminophen 10/325 mg Tablet PO PRN (21:11)
[2018-06-16 21:26] LABS: Hemoglobin 7.3 g/dL (14.0-18.0)
[2018-06-17 01:17] VITALS: BP 122/58; TEMP 98.2
[2018-06-17 02:00] LABS: Hemoglobin 7.7 g/dL (14.0-18.0); Mean Corpuscular HGB CONC 33.7 g/dL (32.0-36.0); Mean Corpuscular Hemoglobin 30.6 pg (27.0-31.0); Mean Platelet Volume 9.4 fL (7.4-10.4); Platelet Count 31 thou/uL (130-400); RBC Distribution Width 16.7 % (11.5-14.5)
[2018-06-17 02:01] LABS: Band 12 % (5-11); Hypochromia SLIGHT = 6-15 cells (100X) (0-5/hpf); Lymphocytes 26 % (21-51); MDiff Complete? YES; Monocytes 12 % (0-10); Neutrophil 50 % (42-75); Platelet Morphology Comment Appears Decreased
== END 2018-06-17 01:22 | disposition home or self-care (01) ==
LOC: ONC/OP 14:44 → ONC 16:04 → ONC/OP 06-17 01:22
PROVIDERS: ATTEND Internal Medicine Hematology & Oncology
PROC: 30233R1 Transfusion of Nonautologous Platelets into Peripheral Vein, Percutaneous Approach (ICD-10-PCS; principal; 2018-06-16)
PROC: 30233N1 Transfusion of Nonautologous Red Blood Cells into Peripheral Vein, Percutaneous Approach (ICD-10-PCS; 2018-06-16)
DX: D64.9 Anemia, unspecified (principal); D69.6 Thrombocytopenia, unspecified; Z91.048 Other nonmedicinal substance allergy status
CPT/HCPCS: 36430; 85014; 85018; 85025; 86850; 86900; 86901; P9016; P9035; Q0163

== ENCOUNTER 2018-07-06 10:08 | Outpatient (CLI) | payer MEDICARE, BC ==
[2018-07-06] MEDS ORDERED: ISOVUE-370 76%-LOCM 1 ML ONE (11:16)
--- NOTE | 2018-07-06 13:29 | CT ---
EXAM: CT chest, abdomen, and pelvis with IV contrast: HISTORY: Lung cancer COMPARISON: CT thorax on 03/31/[address] abdomen and pelvis on 03/16/2018. FINDINGS: CT THORAX: Lungs: Previously noted left lower lobe mass is again seen measuring 3.6 cm x 2.7 cm with previously obtained measurement of 3.7 cm x 2.5 cm. The large destructive heterogeneous and lobulated right chest wall mass in the right upper lung zone is again seen. Measurement on prior study of 03/31/2018 i n axial dimensions was 9.1 cm AP x 7.9 cm transverse, and on today's examination this measures 10.3 cm AP x 4.7 cm transverse. There is involvement and destruction of the right second, third, fourth, a nd fifth ribs. There are increased interstitial densities likely related to scattered areas of scarring with associa danielle emphysematous changes scattered within the lungs bilaterally. No new pulmonary nodule or mass is appreciated. Pleura: No pleural effusion. Lymph nodes: Mediastinal and bilateral hilar lymphadenopathy is again noted. Largest pretracheal lymp h node measures 3.9 cm x 2.9 cm with previous measurement of 3.2 cm 2.6 cm. Large subcarinal lymph node is slightly larger in size measuring 3.2 cm x 2.3 cm greatest dimensions on prior study 2.7 cm x 1.6 cm. Mediastinum: Vascular calcifications are again seen in the coronary arteries and involving the thorac ic aorta. Chest wall: Remote healing left posterolateral rib fracture is seen. As noted above, there is destruc tion of upper right lateral ribs. There is on area of sclerosis and lucency seen involving the posterolateral right ninth rib which may represent healing fracture; although, a metastatic lesion in this region cannot be entirely excluded. There is a lytic and sclerotic lesion seen in T8 vertebral body measuring 1.7 cm worrisome for a metastatic lesion. There is also a rounded lytic lesi on in the T12 vertebral body which was not present on study of 09/20/2017 and is also likely related to a lytic metastatic lesion measuring 1.[address] ABDOMEN AND PELVIS: Liver: Multiple hypodense masses are seen throughout the liver compatible with multiple metastatic le sions. The hypodense lesions have increased in size compared to study on 03/31/2018 with increase in number of lesions as well. Largest lesion is seen in the right hepatic lobe measuring 5.9 cm. This li comfort represents conglomeration of hypodense lesions which were seen in this region on prior exam. Gallbladder: Within normal limits. Pancreas: Within normal limits. Spleen: Within normal limits. Adrenal glands: Within normal limits. Kidneys: Within normal limits. Urinary Bladder: The urinary bladder is unremarkable. Reproductive organs: Within normal limits for patient's age. 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 Aneurysm sac diameter is not significantly changed from the prior study with greatest dimension of 5.3 cm. Vascular calcifications are seen. Bowel: Small amount of retained fecal material is seen throughout the colon. Adenopathy:There are mildly prominent aortocaval lymph nodes, and these lymph nodes are slightly more prominent than on study on 09/20/2017. Lymph node in the distal aortocaval location measures 1 cm in short axis dimension and previously measured 0.8 cm. There is a mildly prominent lymph node adjace nt to the right common iliac artery and vein measuring 0.9 cm in short axis dimension with previous measurement of 0.7 cm. Peritoneum: No free fluid or fluid collection is seen. No free intraperitoneal gas is identified. Abdominal wall: No abnormalities seen. Osseous structures: There is irregularity with sclerosis and lucency involving the L4 vertebral body which was not present on study of 09/20/2017 and is worrisome for metastatic lesion in this location. There is also a subtle area of sclerosis within the right ischium and in the right iliac ivania ne just superior to the right sacroiliac joint which were not seen on prior exam and may represent metastatic lesions. IMPRESSION: 1. Left lower lobe lung mass as well as destructive heterogeneous chest wall mass right upper lobe wh ich extends into the right upper lobe. Chest wall mass on the right is measuring smaller in size. Mass in the left lower lobe has not significantly changed in size. 2. Mediastinal and hilar lymphadenopathy as well as mild enlargement of aortocaval lymph nodes which are larger in size compared to study in 2018. 3. Osseous metastatic lesions involving the T8, T12, and L4 vertebral bodies with sclerosis within th e right ischial bone and right ilium which may represent very small metastatic lesions. Bone scan may be helpful for further evaluation. 4. Innumerable hepatic metastatic lesions which have enlarged and increased in number. Some of the le sions do demonstrate areas of central increased density probably due to calcification related to treated metastatic lesions.
== END 2018-07-06 10:09 | disposition home or self-care (01) ==
LOC: BICCT 10:08
PROVIDERS: ATTEND Internal Medicine Hematology & Oncology
DX: C34.11 Malignant neoplasm of upper lobe, right bronchus or lung (principal); R91.8 Other nonspecific abnormal finding of lung field; R59.0 Localized enlarged lymph nodes; M89.9 Disorder of bone, unspecified; C79.51 Secondary malignant neoplasm of bone; C78.00 Secondary malignant neoplasm of unspecified lung
CPT/HCPCS: 71260; 74177; Q9966